=== PATIENT | male | born 1975 | race Caucasian/White ===

== ENCOUNTER 2020-07-09 23:34 | Emergency (ER) | payer MEDICARE, MEDICAID, SELFPAY ==
[2020-07-09 23:46] VITALS: BP 150/83; PULSE 76; RESP 17; TEMP 36.7; O2SAT 97; BMI 33.3
--- NOTE | 2020-07-09 23:56 | XR_ITS ---
WS: [id number] Left foot, 3 views, 07/10/2020 Clinical Data: foot pain and injury Comparison: None. Findings: No fractures or dislocations are seen. No bone destruction or erosion is noted. The joint spaces and soft tissues are normal. XR/XR foot LT min 3V* [id number] Impression: Negative left foot.
--- NOTE | 2020-07-09 23:56 | XR_ITS ---
WS: [id number] Left ankle, 3 views, 07/10/2020 Clinical Data: injury with pain Comparison: None. Findings: No fractures or dislocations are seen. The ankle mortise is normal. The talus and calcaneus are unrem arkable. No soft tissue swelling over the medial or lateral malleolus is seen. XR/XR ankle LT min 3V* [id number] Impression: Negative left ankle.
--- NOTE | 2020-07-09 23:59 | ED_ITS ---
HPI - Extremity Problem General: Chief complaint: Extremity Injury, Lower Stated complaint: fall/swelling in left foot Time Seen by Provider: 07/09/20 23:35 History of Present Illness: HPI Narrative: Patient is a 45-year-old male comes to the ED with injury to left foot. Patient says 2 days ago he slipped and sprained his left foot. He has had some swelling in left foot and pain as well. He says his pain has gotten better but the swelling is still there. He is also complaining of his foot being very red. Patient is unsure of his last tetanus shot. Associated symptoms: Deny chest pain, fever(s) or rash Review of Systems Const: Denies: fever(s), chills or fatigue Eyes: Denies: change in vision or eye discomfort ENMT: Denies: throat pain, odynophagia, nasal discharge or nasal congestion Card: Denies: chest pain, palpitations, edema, swelling of feet/ankles, dyspnea on exertion or orthopnea Resp: Denies: dyspnea, productive cough or non-productive cough GI: Denies: abdominal pain, nausea, vomiting, diarrhea, constipation or hematochezia : Denies: flank pain, difficulty urinating, dysuria or hematuria Musc: Reports: extremity pain (left foot); Denies: neck pain, back pain or extremity swelling Skin/Breast: Reports: erythema (skin is red on foot); Denies: rash or new lesions Neuro: Denies: headache(s), numbness in extremities or weakness in extremities Physical Exam Const: COMMON NORMALS: no acute distress, patient oriented x3, healthy appearing and alert GENERAL APPEARANCE: cooperative and comfortable HENMT: COMMON NORMALS: normocephalic HEAD & SCALP: normocephalic MOUTH: Normal oral and palatal mucosa present THROAT: posterior oropharynx normal and uvula midline Eye: COMMON NORMALS: Equal, round and reactive pupils present PUPIL: Yes Equal, round and reactive pupils present Neck/C-Spine: COMMON NORMALS: supple GENERAL: Yes normal visual inspection Resp: COMMON NORMALS: normal respiratory effort, No retractions, No use of accessory muscles and clear to auscultation bilaterally AUSCULTATION: clear to auscultation bilaterally Cardio: COMMON NORMALS: regular rate, regular rhythm, S1 normal heart sound present, S2 normal heart sound present, No gallops present (Cardio), No clicks present (Cardio), No murmurs present (Cardio) and Peripheral pulses 2+ throughout RATE: regular rate RHYTHM: regular rhythm HEART SOUNDS: S1 normal heart sound present and S2 normal heart sound present PERIPHERAL PULSES: Peripheral pulses 2+ throughout GI: COMMON NORMALS: Normal to inspection, nondistended, normoactive bowel sounds present, Soft to palpation, non-tender and no masses PALPATION: Yes Soft to palpation : COMMON NORMALS: Yes no CVA tenderness BLADDER/KIDNEY EXAM: Yes no CVA tenderness Back/Pelvis: COMMON NORMALS: no CVA tenderness Extremity: LEFT LOWER EXTREMITY: Yes foot & digits Left foot and digits: Yes inspection (No visible deformity, edema and erythema and warmth on left foot), Yes palpation (Tender to palpation over top of left foot.), Yes ROM (Full range of motion) and Yes neurovascular exam (Intact) Neuro: COMMON NORMALS: patient oriented x3 and moves all extremities SENSORIUM/ORIENTATION: Yes alert Skin: NARRATIVE SKIN EXAM: On left foot patient has multiple small superficial abrasions, along with erythema warmth and tenderness of the skin. No purulent drainage seen. Findings suggestive of cellulitis developing in left foot. GENERAL SKIN EXAM: dry skin Course Vital Signs: Vital signs: Vital Signs Temperature 98.1 F 07/09/20 23:46 Pulse Rate 76 07/09/20 23:46 Respiratory Rate 17 07/09/20 23:46 Blood Pressure 150/83 07/09/20 23:46 Pulse Oximetry 97 07/09/20 23:46 MDM - Extremity (Nontraumatic) MDM Narrative: Medical decision making narrative: Patient is a 45-year-old male comes to the ED with left foot pain and swelling. Patient said a couple days ago he fell and twisted left foot. He says his pain has gotten a lot better in his left foot but he has had continued swelling and redness left foot. Exam findings show left foot edema, warmth, erythema and tenderness to palpation over the left foot. Multiple tiny superficial abrasions on left foot with the surrounding erythema. findings are suggestive of cellulitis. Neurovascular intact. X-ray of left foot and left ankle showed no acute fractures or findings. Patient was diagnosed with cellulitis left foot and given dose of Bactrim while here in the ED. Patient patient discharged home with a prescription for Bactrim and he was given tetanus shot while here in the ED. He was told to follow-up with his primary care doctor in 7 to 10 days for reevaluation. Take [id number] ibuprofen or Tylenol for pain and inflammation, rest ice and elevate left foot. Return to ED precautions given. Patient understood and agreed with plan. Imaging Data^: Xray Ortho: Attestation: I personally reviewed and interpreted this imaging study as follows: My impression: Left foot and left ankle x-ray showed no acute fractures or findings. Discharge Plan Discharge Patient Disposition: Home Clinical Impression: Cellulitis Qualifiers: Site of cellulitis: extremity Site of cellulitis of extremity: lower extremity Laterality: left Qualified Code(s): L03.116 - Cellulitis of left lower limb Condition: Stable Prescriptions: New Bactrim DS 800-160 mg tablet 1 tab PO BID 7 Days Qty: 14 RF: 0 Discharge Orders: Discharge ED (Routine); Ordered 07/10/20 Ordered By: Charles Trevino Referrals: Ruth Puckett DO [Primary Care Provider] - Discharge Diet: Regular Discharge Activity: Increase activity as tolerated Patient Instructions: Cellulitis (ED) Activity Restrictions/Additional Instructions: Follow-up with medical provider as directed in 7 to 10 days for reevaluation. Take full course of antibiotic as prescribed. Take [id number] Tylenol or Motrin for pain. Rest ice and elevate left leg as well. Return to the ED or your medical provider if condition worsens. Please read and understand discharge instructions. If any questions, please ask. Coding Level of Care Code ED Dress Operator for Guilherme Barnes Exam Comprehensive
[2020-07-10] MEDS: sulfamethoxazole-trimeth DS 160-800 mg Tablet 1 TAB PO (00:15)
[2020-07-10] MEDS: ketorolac 60 mg/2 mL INJ IM (00:16)
[2020-07-10] MEDS: tetanus-dipt-pertussis 0.5 mL SDV IM (00:21)
== END 2020-07-10 00:44 | disposition home or self-care (01) ==
PROVIDERS: Emergency Provider Physician Assistant; PCP Family Medicine
DX: L03.116 Cellulitis of left lower limb (principal); Z23 Encounter for immunization; S90.812A Abrasion, left foot, initial encounter; W01.0XXA Fall on same level from slipping, tripping and stumbling without subsequent striking against object, initial encounter
CPT/HCPCS: 73610; 73630; 90471; 90715; 96372; 99283; J1885

== ENCOUNTER 2020-08-16 21:37 | Emergency (ER) | payer MEDICARE, MEDICAID, SELFPAY ==
[2020-08-16 21:41] VITALS: BP 133/82; PULSE 76; RESP 17; TEMP 36.9; O2SAT 98; BMI 33.2
--- NOTE | 2020-08-16 22:41 | ED_ITS ---
HPI - Extremity Problem General: Chief complaint: Extremity Injury, Lower Stated complaint: BUMPED R FOOT/SWELLING Time Seen by Provider: 08/16/20 22:17 Source: patient Mode of arrival: ambulatory Limitations: no limitations History of Present Illness: HPI Narrative: Patient is a 45-year-old male who presents to ED today with complaints of swelling and redness to his right foot. Patient tells me yesterday he stubbed his foot and sustained abrasions to the top of his third and fourth digits. He states since that time he has noticed redness and swelling to his foot. Patient was seen at our facility last month for almost identical symptoms to the left foot. He was treated successfully with oral Bactrim. Patient has not noticed any redness streaking up his leg. He is not complaining of bony tenderness or pain with ambulation. He has not been running fevers. He is not a diabetic. MD Complaint: extremity pain and extremity swelling Onset (ago): hour(s) Location: right and lower extremity Radiation: none Relieving factors: nothing Exacerbating factors: nothing Associated symptoms: Reports no associated symptoms; Deny chest pain or fever(s) Review of Systems Const: Denies: fever(s), chills, body aches, fatigue or malaise Card: Denies: chest pain Resp: Denies: dyspnea Musc: Reports: extremity swelling (R foot); Denies: joint pain, joint swelling or limited range of motion Skin/Breast: Reports: other (redness R foot) Neuro: Denies: numbness in extremities, sensory changes or difficulty walking Physical Exam Const: COMMON NORMALS: no acute distress, patient oriented x3, no limitations and alert GENERAL APPEARANCE: cooperative ORIENTATION/CONSCIOUSNESS: Yes awake, Yes oriented to person, Yes oriented to place and Yes oriented to time Extremity: OTHER: pt has small abrasions to the dorsum of his 3-4 digits; he has mild warmth/erythema to 2-4 toes and to the distal dorsal foot; there is non-pitting edema present; no findings to lower leg/ankle; no lymphangitic streaking; no abscess formation Neuro: COMMON NORMALS: patient oriented x3, moves all extremities, no focal motor deficits, no sensory deficits noted and gait normal SENSORIUM/ORIENTATION: Yes alert, Yes oriented to person, Yes oriented to place and Yes oriented to time Skin: NARRATIVE SKIN EXAM: see extremity assessment-otherwise normal skin exam Course Vital Signs: Vital signs: Vital Signs Temperature 98.5 F 08/16/20 21:41 Pulse Rate 76 08/16/20 23:10 Respiratory Rate 17 08/16/20 23:10 Blood Pressure 133/82 08/16/20 23:10 Pulse Oximetry 98 08/16/20 23:10 MDM - Extremity (Nontraumatic) MDM Narrative: Medical decision making narrative: Return to ED precautions given. Will treat with oral Bactrim again as patient had good clincal results with this last time. Discharge Plan Discharge Patient Disposition: Home Clinical Impression: Cellulitis of foot, right Condition: Stable Prescriptions: New Bactrim DS 800-160 mg tablet 1 tab PO BID 7 Days Qty: 14 RF: 0 Discharge Orders: Discharge ED (Routine); Ordered 08/16/20 Ordered By: Indira Chatterjee Referrals: Ruth Puckett DO [Primary Care Provider] - Patient Instructions: Cellulitis (ED) Activity Restrictions/Additional Instructions: Fill your antibiotics and get started on them immediately. You need to return to the emergency department for worsening redness, streaking up your leg, fevers, inability to hold down your antibiotics, or any other concerns you may have. Coding Level of Care Code ED Assorter Laundry for Guilherme Barnes
[2020-08-16] MEDS: sulfamethoxazole-trimeth DS 160-800 mg Tablet 1 TAB PO (22:55)
[2020-08-16 23:10] VITALS: BP 133/82; PULSE 76; RESP 17; O2SAT 98
== END 2020-08-16 22:50 | disposition home or self-care (01) ==
PROVIDERS: Emergency Provider Physician Assistant; PCP Family Medicine
DX: L03.115 Cellulitis of right lower limb (principal)
CPT/HCPCS: 99282

== ENCOUNTER 2020-09-23 12:56 | Outpatient (CLI) | payer MEDICARE, MEDICAID, SELFPAY ==
--- NOTE | 2020-09-23 13:01 | XRR_ITS ---
PROCEDURE INFORMATION: Exam: XR Chest Exam date and time: 09/23/2020 1:01 PM Age: 45 years old Clinical indication: Pain; Angina pectoris; Additional info: Chest pain TECHNIQUE: Imaging protocol: XR of the chest. Views: 2 views. COMPARISON: No relevant prior studies available. FINDINGS: Lungs: Nodule in the left upper lobe measuring 7 mm. Pleural spaces: Unremarkable. No pleural effusion. No pneumothorax. Heart/Mediastinum: Unremarkable. No cardiomegaly. Bones/joints: Unremarkable. XR/XR chest 2V* [id number] IMPRESSION: Nodule in the left upper lobe measuring [address] chest is suggested for further evaluation. Comparison with prior imaging if available can be helpful.
--- NOTE | 2020-09-23 13:01 | XRR_ITS ---
PROCEDURE INFORMATION: Exam: XR Abdomen Exam date and time: 09/23/2020 1:01 PM Age: 45 years old Clinical indication: Abdominal pain; Generalized; Additional info: Chronic generalized abdominal pain TECHNIQUE: Imaging protocol: XR of the abdomen. Views: Frontal supine view of the abdomen. 1 View. COMPARISON: No relevant prior studies available. FINDINGS: Gastrointestinal tract: Moderate colonic fecal load. Normal bowel gas pattern. Bones/joints: Unremarkable. XR/XR abdomen 1V* [id number] IMPRESSION: Moderate colonic fecal load. Correlation with constipation.
== END 2020-09-23 12:57 | disposition home or self-care (01) ==
PROVIDERS: PCP Family Medicine; Visit Provider Family Medicine
DX: R10.84 Generalized abdominal pain (principal); R07.89 Other chest pain; R91.1 Solitary pulmonary nodule
CPT/HCPCS: 71046; 74018

== ENCOUNTER 2020-12-20 07:29 | Emergency (ER) | payer MEDICARE, MEDICAID, SELFPAY ==
[2020-12-20 07:30] VITALS: BP 135/85; PULSE 69; RESP 16; TEMP 36.6; O2SAT 99; BMI 33.3
--- NOTE | 2020-12-20 07:33 | XRR_ITS ---
PROCEDURE INFORMATION: Exam: XR Right Shoulder Exam date and time: 12/20/2020 7:33 AM Age: 45 years old Clinical indication: Injury or trauma; Fall; Blunt trauma (contusions or hematomas); Shoulder; Right; Injury date: 12/20/2020; Additional info: Injury/fall; Y view too please TECHNIQUE: Imaging protocol: XR Right shoulder. Views: 2 or more views. Total images: 3 COMPARISON: CR XR chest 2V* [id number] 09/23/2020 1:10 PM FINDINGS: Bones/joints: Normal. Soft tissues: Normal. XR/XR shoulder RT min 2V* [id number] IMPRESSION: No acute findings.
--- NOTE | 2020-12-20 07:34 | W.ED.FALL ---
HPI - Fall General: Chief Complaint: Fall Stated Complaint: FALL, R SHOULDER PAIN Time Seen by Provider: 12/20/20 07:30 Source: patient and EMS Mode of arrival: EMS Limitations: no limitations History of Present Illness: HPI Narrative: Patient is a 45-year-old male who presents to ED today via EMS for evaluation of right shoulder pain following a fall. Patient tells me this morning he was getting out of the shower when he slipped and fell directly onto his right shoulder. He denies any other injury sustained during the fall. Patient denies striking his head or LOC. He is not complaining of neck or back pain. He has been ambulatory since the event without difficulty. Patient is not complaining of numbness or tingling to his right upper extremity. MD complaint: fall Onset (ago): hour(s) Fall from: standing Fall witnessed: no Place fall occurred: home Loss of consciousness: None Prolonged down time: no Symptoms prior to fall: none Context: tripped/slipped Location of injury - extremities: Right: shoulder Severity: moderate Associated symptoms-after fall: Denies abdominal pain, chest pain, difficulty walking, headache(s), lightheadedness or neck pain Review of Systems Const: Denies: fever(s), chills, body aches, fatigue or malaise Eyes: Denies: change in vision or blurry vision ENMT: Denies: throat pain, odynophagia, nasal discharge or nasal congestion Card: Denies: chest pain, palpitations, irregular heart rhythm, edema, lightheadedness, syncope, pre-syncope or dyspnea on exertion Resp: Denies: dyspnea, productive cough, non-productive cough, hemoptysis or chest congestion GI: Denies: abdominal pain, nausea, vomiting or diarrhea : Denies: flank pain or dysuria Musc: Reports: joint pain (R shoulder); Denies: neck pain, back pain, extremity pain, extremity swelling, joint swelling or joint redness Skin/Breast: Denies: rash Neuro: Denies: headache(s), numbness in extremities, weakness in extremities, sensory changes, difficulty walking or dizziness Physical Exam Const: COMMON NORMALS: no acute distress, patient oriented x3, no limitations, alert and well nourished GENERAL APPEARANCE: cooperative NUTRITIONAL APPEARANCE: overweight ORIENTATION/CONSCIOUSNESS: Yes awake, Yes oriented to person, Yes oriented to place and Yes oriented to time HENMT: COMMON NORMALS: normocephalic and atraumatic HEAD & SCALP: normal to inspection, normocephalic and atraumatic FACE & SINUS: normal facial exam Neck/C-Spine: COMMON NORMALS: full ROM CERVICAL SPINE: Yes cervical ROM normal, No pain with cervical ROM, No Cervical spine tenderness and No Paracervical muscle tenderness Chest: COMMONS NORMALS: normal inspection of the chest and normal palpation of entire chest wall Resp: COMMON NORMALS: normal respiratory effort and clear to auscultation bilaterally AUSCULTATION: clear to auscultation bilaterally Cardio: COMMON NORMALS: regular rate and regular rhythm RATE: regular rate RHYTHM: regular rhythm GI: COMMON NORMALS: Normal to inspection, nondistended, normoactive bowel sounds present, Soft to palpation, non-tender, No hepatosplenomegaly present and no masses PALPATION: Yes Soft to palpation and Yes No hepatosplenomegaly present Back/Pelvis: COMMON NORMALS: thoracic and lumbar spine normal to inspection, no thoracic nor lumbar tenderness and thoraco-lumbar ROM normal Extremity: GENERAL: Yes normal exam except as noted RIGHT UPPER EXTREMITY: Yes shoulder joint Right shoulder: Yes Right shoulder joint inspection exam (TTP glenohumeral joint), Yes Right shoulder joint ROM exam (limited past about 30-40 deg flexion and abduction) and Yes Right shoulder joint neurovascular exam (normal) Neuro: JOSE COMA SCALE: document GCS findings Waldron coma scale eye opening: Spontaneous Jose coma scale verbal response: Orientated Jose coma scale motor response: Obey commands Jose coma scale total score: 15 COMMON NORMALS: patient oriented x3, CN's II-XII intact bilaterally, moves all extremities, no focal motor deficits, no sensory deficits noted and gait normal SENSORIUM/ORIENTATION: Yes alert, Yes oriented to person, Yes oriented to place and Yes oriented to time Skin: COMMON NORMALS: no rashes or lesions noted GENERAL SKIN EXAM: no rashes or lesions noted TRAUMA: no lacerations or abrasions Course Vital Signs: Vital signs: Vital Signs Temperature 97.9 F 12/20/20 07:30 Pulse Rate 79 12/20/20 08:40 Respiratory Rate 16 12/20/20 08:40 Blood Pressure 152/74 12/20/20 08:40 Pulse Oximetry 97 12/20/20 08:40 MDM - Fall Imaging Data^: XR R shoulder: Radiologist's impression: [facility] [address] [place] [address] XRay Report Signed Patient: Billy Eubanks Unit #: [id number] : 1975 Age/Sex: 45 / M ADM Date: 12/20/20 Loc: ER Room/Bed: Attending Dr: Ordering Provider/Ordering MD: Indira Chatterjee Date of Service: 12/20/20 Procedure(s): XR shoulder RT min 2V* [id number] Accession Number(s): [id number] Report Number: [id number] PROCEDURE INFORMATION: Exam: XR Right Shoulder Exam date and time: 12/20/2020 7:33 AM Age: 45 years old Clinical indication: Injury or trauma; Fall; Blunt trauma (contusions or hematomas); Shoulder; Right; Injury date: 12/20/2020; Additional info: Injury/fall; Y view too please TECHNIQUE: Imaging protocol: XR Right shoulder. Views: 2 or more views. Total images: 3 COMPARISON: CR XR chest 2V* [id number] 09/23/2020 1:10 PM FINDINGS: Bones/joints: Normal. Soft tissues: Normal. XR/XR shoulder RT min 2V* [id number] IMPRESSION: No acute findings. Dictated By: Luis Chapa MD Signed By: Luis Chapa MD Signed Date/Time: 12/20/20841 DD/ 9 Discharge Plan Discharge Patient Disposition: Home Clinical Impression: Right shoulder injury Qualifiers: Encounter type: initial encounter Qualified Code(s): S49.91XA - Unspecified injury of right shoulder and upper arm, initial encounter Condition: Stable Discharge Orders: Discharge ED (Routine); Ordered 12/20/20 Ordered By: Indira Chatterjee Referrals: Ruth Puckett DO [Primary Care Provider] - Activity Restrictions/Additional Instructions: As we discussed please follow-up with primary care next week for continued shoulder pain. You may wear the sling for the next 24 to 48 hours but as we discussed please begin gentle passive range of motion of the shoulder joint. You may take Tylenol and/or ibuprofen as needed for discomfort. You may apply ice to the shoulder for 15 to 20 minutes every other hour. Coding Level of Care Code ED Apprentice Electrician for Chg F[employer] Exam Comprehensive
[2020-12-20 07:46] VITALS: BP 135/85; PULSE 71; O2SAT 98
[2020-12-20] MEDS: ketorolac 60 mg/2 mL INJ IM (08:16)
[2020-12-20 08:40] VITALS: BP 152/74; PULSE 79; RESP 16; O2SAT 97
== END 2020-12-20 08:42 | disposition home or self-care (01) ==
PROVIDERS: Emergency Provider Physician Assistant; PCP Family Medicine
DX: S49.91XA Unspecified injury of right shoulder and upper arm, initial encounter (principal); W18.2XXA Fall in (into) shower or empty bathtub, initial encounter
CPT/HCPCS: 73030; 96372; 99283; J1885

== ENCOUNTER 2021-06-30 22:03 | Emergency (ER) | payer BC, MEDICAID, SELFPAY ==
[2021-06-30 22:49] VITALS: BP 134/77; PULSE 91; RESP 20; TEMP 36.7; O2SAT 97; BMI 33.7
--- NOTE | 2021-07-01 00:12 | ED_ITS ---
HPI - Skin/Abscess/Foreign Bdy General: Chief complaint: Skin/Abscess/Foreign Body Stated complaint: right foot swelling Time Seen by Provider: 07/01/21 00:12 History of Present Illness: 46-year-old male patient comes in today with redness and pain to the right foot at the first MTP joint. Patient has had 2 prior episodes which was treated as cellulitis. Patient is concerned that he has cellulitis again. Patient denies diabetes. Patient takes no routine medications. Patient appears in mild pain. Patient reports no chronic medical problems. Associated symptoms: Deny fever(s) Review of Systems General: Reports: 10 or more systems reviewed and unremarkable except in HPI and below Const: Denies: fever(s) Card: Denies: chest pain Resp: Denies: dyspnea Musc: Reports: extremity pain Skin/Breast: Reports: erythema Physical Exam Const: COMMON NORMALS: alert HENMT: COMMON NORMALS: normocephalic HEAD & SCALP: normocephalic Resp: COMMON NORMALS: normal respiratory effort and clear to auscultation bilaterally AUSCULTATION: clear to auscultation bilaterally Cardio: COMMON NORMALS: regular rate and regular rhythm RATE: regular rate RHYTHM: regular rhythm Extremity: RIGHT LOWER EXTREMITY: Yes foot & digits (Erythema and tenderness to the first MTP joint) Right foot and digits: Yes inspection, Yes palpation, Yes ROM and Yes neurovascular exam Neuro: SENSORIUM/ORIENTATION: Yes alert Skin: COMMON NORMALS: no rashes or lesions noted GENERAL SKIN EXAM: no ra shes or lesions noted Course Vital Signs: Vital signs: Vital Signs Temperature 98.1 F 06/30/21 22:49 Pulse Rate 91 06/30/21 22:49 Respiratory Rate 20 H 06/30/21 22:49 Blood Pressure 134/77 06/30/21 22:49 Pulse Oximetry 97 06/30/21 22:49 MDM - Skin/Abscess/Foreign Bdy Medicial Decision Making Patient presents with some redness and swelling to the right foot. On exam patient has good pulses. Patient has redness and tenderness to the MTP joint of the first digit of the right foot. Distal pulses and sensation is intact. Differential diagnosis includes cellulitis, gout, fracture. X-ray noted no fracture. BMP and uric acid was drawn for further evaluation. I believe patient probably has gout and I went ahead and gave 80 mg of Depo-Medrol IM, 30 mg of Toradol for pain, patient will be continued on diclofenac and colchicine for his treatment. Will cover with cephalexin for of simple cellulitis but I do not believe this is the main cause. Recommend patient follow-up with primary care in 3 days for recheck. And for preventative treatment for gout flares. Lab Data : 07/01/21 00:40 Discharge Plan Discharge Patient Disposition: Home Clinical Impression: Gout Qualifiers: Gout site: toe Gout etiology: unspecified cause Chronicity: unspecified Laterality: right Qualified Code(s): M10.9 - Gout, unspecified Condition: Stable Prescriptions: New colchicine 0.6 mg tablet 0.6 mg PO DAILY Qty: 7 0RF diclofenac sodium 75 mg tablet,delayed release (DR/EC) 75 mg PO Q12H PRN (Reason: pain) Qty: 20 0RF cephalexin 500 mg capsule 500 mg PO Q12H 7 Days Qty: 14 0RF Discharge Orders: Discharge ED (Routine); Ordered 07/01/21 Ordered By: Esau Collier Referrals: Ruth Puckett DO [Primary Care Provider] - Discharge Diet: As Directed Discharge Activity: Increase activity as tolerated Patient Instructions: Low Purine Diet (ED), Gout (ED), Opioid Safety Activity Restrictions/Additional Instructions: Home and rest. Drink plenty of fluids. Take medication as directed. Follow-up with primary care in 3 days for recheck and further treatment for gout. Return to ER for new concerns. Coding Level of Care Code ED Development Vice President for Guilherme Barnes
--- NOTE | 2021-07-01 00:18 | XRR_ITS ---
PROCEDURE INFORMATION: Exam: XR Right Foot Exam date and time: 07/01/2021 12:24 AM Age: 46 years old Clinical indication: Other: Redness, swelling TECHNIQUE: Imaging protocol: XR Right foot. Views: 3 or more views. COMPARISON: No relevant prior studies available. FINDINGS: Bones/joints: Normal. Soft tissues: Soft tissue swelling of the great toe and medial forefoot. XR/XR foot RT min 3V* [id number] IMPRESSION: No osseous abnormality.
[2021-07-01] MEDS: cephALEXin 500 mg Capsule PO (00:30)
[2021-07-01] MEDS: ketorolac 30 mg/mL INJ IM (00:30)
[2021-07-01] MEDS: methylPREDNISolone (DEPO) 80 MG/ML INJ 1 mL IM (00:30)
[2021-07-01 01:38] LABS: Anion Gap 18.6 (5-19); Blood Urea Nitrogen 14 mg/dL (6-20); Calcium 9.7 mg/dL (8.5-10.5); Carbon Dioxide 22 mmol/L (22-29); Chloride 102 mmol/L (98-107); Glomerular Filtration Rate 81.2 mL/min (90-130); Glucose 130 mg/dL (65-115); Osmolality Calculated 290 mOsm/kg (285-295); Potassium 3.6 mmol/L (3.5-5.1); Sodium 139 mmol/L (136-145); Uric Acid 7.6 mg/dL (3.4-7.0)
== END 2021-07-01 01:34 | disposition home or self-care (01) ==
PROVIDERS: Emergency Provider Nurse Practitioner Family; PCP Family Medicine
DX: M10.9 Gout, unspecified (principal); M79.671 Pain in right foot
CPT/HCPCS: 73630; 80048; 84550; 96372; 99283; J1040; J1885

== ENCOUNTER 2021-08-06 13:51 | Outpatient (CLI) | payer BC, MEDICAID, SELFPAY ==
--- NOTE | 2021-08-06 14:07 | XR_ITS ---
WS: [id number] XR foot RT min 3V* [id number] REASON FOR EXAM: ACUTE GOUT INVOLVING TOE OF R FOOT FINDINGS: Soft tissue swelling in the region of the metatarsal-phalangeal joint of the great toe. No discrete m ass or calcification. The MTP joint space of the great toe is intact and well preserved. No erosions. No periosteal reactio n. No other significant bony or joint abnormality of the right foot is identified. XR/XR foot RT min 3V* [id number] IMPRESSION: Soft tissue swelling of the great toe with no other finding.
== END 2021-08-06 13:52 | disposition home or self-care (01) ==
PROVIDERS: PCP Family Medicine; Visit Provider Nurse Practitioner Family
DX: M10.9 Gout, unspecified (principal); M79.89 Other specified soft tissue disorders
CPT/HCPCS: 73630

== ENCOUNTER 2021-08-08 20:23 | Emergency (ER) | payer MEDICARE, MEDICAID, SELFPAY ==
[2021-08-08 20:30] VITALS: BP 159/81; PULSE 75; RESP 18; O2SAT 99; BMI 33.0
--- NOTE | 2021-08-08 20:35 | W.ED.EXTPRO ---
HPI - Extremity Problem General: Chief complaint: Extremity Injury, Lower Stated complaint: Gout Flare up on Rt foot Time Seen by Provider: 08/08/21 20:34 History of Present Illness: 46-year-old male patient comes in today with complaints of right foot gout attack. Patient was started on antibiotics and steroid for concern of cellulitis. Patient was told he had gout but they were concern for secondary cellulitis. No sign of cellulitis is noted. Patient is afebrile. Patient comes in due to continued complaints of pain and discomfort. Patient does report some decrease in redness though. Associated symptoms: Deny chest pain Review of Systems General: Reports: 10 or more systems reviewed and unremarkable except in HPI and below Card: Denies: chest pain Resp: Denies: dyspnea Musc: Reports: extremity pain and joint redness Physical Exam Const: COMMON NORMALS: alert HENMT: COMMON NORMALS: normocephalic HEAD & SCALP: normocephalic Neck/C-Spine: COMMON NORMALS: full ROM Resp: COMMON NORMALS: normal respiratory effort Cardio: COMMON NORMALS: regular rate RATE: regular rate Extremity: RIGHT LOWER EXTREMITY: Yes foot & digits (First MTP joint redness and tenderness.) Neuro: SENSORIUM/ORIENTATION: Yes alert Skin: COMMON NORMALS: no wounds Course Vital Signs: Vital signs: Vital Signs Pulse Rate 75 08/08/21 20:30 Respiratory Rate 18 08/08/21 20:30 Blood Pressure 159/81 08/08/21 20:30 Pulse Oximetry 99 08/08/21 20:30 MDM - Extremity (Nontraumatic) Medical Decision Making 46-year-old male patient comes in today with a gout attack. On exam patient has some redness and tenderness to the first MTP joint of the right foot. Differential diagnosis includes gout, cellulitis, fracture. No significant signs of cellulitis is noted. Patient has had multiple episodes of this gout flare. Patient has recently been diagnosed back in June with gout and has been started on allopurinol for prophylaxis. Recommended patient hold allopurinol while the gout flare is going and then follow-up with primary care for adjustment of allopurinol. Patient reported understanding and agreed to plan. Discharge Plan Discharge Patient Disposition: Home Clinical Impression: Gout attack Qualifiers: Gout site: foot Gout etiology: unspecified cause Laterality: right Qualified Code(s): M10.9 - Gout, unspecified Condition: Stable Prescriptions: Continued diclofenac sodium 75 mg tablet,delayed release (DR/EC) 75 mg PO Q12H PRN (Reason: pain) Qty: 20 0RF colchicine 0.6 mg tablet 0.6 mg PO DAILY Qty: 6 0RF Rx Instructions: Take 2 tablets when prescription is filled, repeat 1 tablet in 1 hour. Repeat dosing in 3 days if needed. Discharge Orders: Discharge ED (Routine); Ordered 08/08/21 Ordered By: Esau Collier Referrals: Ruth Puckett DO [Primary Care Provider] - Discharge Diet: Usual diet Discharge Activity: Increase activity as tolerated Patient Instructions: Gout (ED) Activity Restrictions/Additional Instructions: Activity as tolerated. Drink plenty of water with medications. Use colchicine 0.6 mg as directed. You will take 2 tablets when you have the prescription filled, then repeat 1 tablet in 1 hour. You can repeat the colchicine in 3 days if symptoms persist. Use diclofenac 75 mg 1 tablet every 12 hours as needed for pain and inflammation. Drink plenty of water with medication. Use acetaminophen, Tylenol, otherwise for pain. Follow-up with primary care in 1 week for recheck. Return to ER. Remember, to hold allopurinol while you have a flare of gout. Restart the allopurinol as the flare subsides. Coding Level of Care Code ED Lieutenant Fire Fighter for Guilherme Barnes
[2021-08-08] MEDS: dexamethasone 10 mg/mL INJ IM (20:55)
[2021-08-08] MEDS: ketorolac 30 mg/mL INJ IM (20:56)
[2021-08-08 21:15] VITALS: BP 133/77; PULSE 78; RESP 20; O2SAT 98
== END 2021-08-08 21:17 | disposition home or self-care (01) ==
PROVIDERS: Emergency Provider Nurse Practitioner Family; PCP Family Medicine
DX: M10.9 Gout, unspecified (principal)
CPT/HCPCS: 96372; 99283; J1100; J1885

== ENCOUNTER 2021-10-08 16:11 | Emergency (ER) | payer MEDICARE, MEDICAID, SELFPAY ==
[2021-10-08 16:58] VITALS: BP 123/75; PULSE 83; RESP 16; TEMP 36.8; O2SAT 98
--- NOTE | 2021-10-08 18:05 | XRR_ITS ---
PROCEDURE INFORMATION: Exam: XR Right Ribs with PA Chest Exam date and time: 10/08/2021 6:36 PM Age: 46 years old Clinical indication: Pain; Other: RT. Mid ribs; Additional info: Injury TECHNIQUE: Imaging protocol: Radiologic exam of the Right ribs with PA chest. Views: 3 views COMPARISON: CR XR chest 2V* [id number] 09/23/2020 1:10 PM FINDINGS: Lungs: Unremarkable. No consolidation. Pleural spaces: Unremarkable. No pleural effusion. No pneumothorax. Heart/Mediastinum: Unremarkable. No cardiomegaly. Bones/joints: No evidence of rib fracture. No acute findings. XR/XR ribs RT mn 3V w CXR1V [id number] IMPRESSION: No acute findings.
--- NOTE | 2021-10-08 21:14 | ED_ITS ---
HPI - General Adult General: Chief complaint: General Medical Stated complaint: R side rib pain Time Seen by Provider: 10/08/21 21:08 History of Present Illness: 46-year-old male patient comes in today with right rib pain. Patient reports that he was sitting down in a valente this morning at breakfast when he struck the right side of his ribs. Since then patient has had increasing pain and discomfort. Patient appears well. Patient appears in moderate pain. Associated symptoms: Deny chest pain or dyspnea Review of Systems General: Reports: 10 or more systems reviewed and unremarkable except in HPI and below Card: Denies: chest pain Resp: Denies: dyspnea Musc: Reports: other (Right rib pain) Physical Exam Const: COMMON NORMALS: alert HENMT: COMMON NORMALS: normocephalic HEAD & SCALP: normocephalic Neck/C-Spine: COMMON NORMALS: full ROM Chest: CHEST: Yes tenderness (Right anterior rib, no flailing, no crepitus) Resp: COMMON NORMALS: normal respiratory effort Cardio: COMMON NORMALS: regular rate RATE: regular rate Back/Pelvis: COMMON NORMALS: thoracic and lumbar spine normal to inspection Neuro: SENSORIUM/ORIENTATION: Yes alert Skin: COMMON NORMALS: no rashes or lesions noted GENERAL SKIN EXAM: no rashes or lesions noted Course Vital Signs: Vital signs: Vital Signs Temperature 98.2 F 10/08/21 16:58 Pulse Rate 83 10/08/21 16:58 Respiratory Rate 16 10/08/21 16:58 Blood Pressure 123/75 10/08/21 16:58 Pulse Oximetry 98 10/08/21 16:58 [facility] - General Adult Medical Decision Making 46-year-old male patient comes in today with injury to the right rib. On exam patient has clear lung sounds, tenderness to the right anterior ribs, no crepitus or subcu emphysema. Differential diagnosis includes fracture, contusion, pneumothorax. Chest x-ray noted no fracture or pneumothorax. Reviewed exam with patient with recommendations for treatment and follow-up. Patient reported understanding. Lab Data Radiology Impressions Ribs X-Ray 10/08/21 18:05 IMPRESSION: No acute findings. Discharge Plan Discharge Patient Disposition: Home Clinical Impression: Contusion of rib on right side Qualifiers: Encounter type: initial encounter Qualified Code(s): S20.211A - Contusion of right front wall of thorax, initial encounter Condition: Stable Prescriptions: No Action diclofenac sodium 75 mg tablet,delayed release (DR/EC) 75 mg PO Q12H PRN (Reason: pain) Qty: 20 0RF colchicine 0.6 mg tablet 0.6 mg PO DAILY Qty: 6 0RF Rx Instructions: Take 2 tablets when prescription is filled, repeat 1 tablet in 1 hour. Repeat dosing in 3 days if needed. Discharge Orders: Discharge ED (Routine); Ordered 10/08/21 Ordered By: Esau Collier Referrals: Ruth Puckett DO [Primary Care Provider] - Discharge Diet: Usual diet Discharge Activity: Increase activity as tolerated Patient Instructions: Contusion in Adults (ED) Activity Restrictions/Additional Instructions: Activity as tolerated. Use acetaminophen and ibuprofen for pain. Use ice or heat for further pain relief. Follow-up with primary care as needed. Return to ER for increased shortness of breath, fever greater than 100.4, or new concerns. Coding Level of Care Code ED Computer Aided Drafter for Guilherme Barnes
[2021-10-08] MEDS: ibuprofen 800 mg tablet PO (21:24)
[2021-10-08 21:25] VITALS: BP 130/74; PULSE 84; RESP 16; O2SAT 99
== END 2021-10-08 21:26 | disposition home or self-care (01) ==
PROVIDERS: Emergency Provider Nurse Practitioner Family; PCP Family Medicine
DX: S20.211A Contusion of right front wall of thorax, initial encounter (principal); W22.09XA Striking against other stationary object, initial encounter
CPT/HCPCS: 71101; 99283

== ENCOUNTER 2022-08-28 19:30 | Emergency (ER) | payer MEDICARE, MEDICAID, SELFPAY ==
[2022-08-28 19:55] VITALS: PULSE 91; RESP 16; TEMP 36.7; O2SAT 98
--- NOTE | 2022-08-28 20:18 | XRR_ITS ---
PROCEDURE INFORMATION: Exam: XR Left Elbow Exam date and time: 08/28/2022 8:28 PM Age: 47 years old Clinical indication: Injury or trauma; Fall; Laceration; Elbow; Left; Additional info: Fall, laceration TECHNIQUE: Imaging protocol: Radiologic exam of the left elbow. Views: 3 or more views. COMPARISON: No relevant prior studies available. FINDINGS: Bones/joints: Ulnar collateral ligament degenerative calcification proximally. Triceps tendon degenerative calcification. Soft tissues: Normal. XR/XR elbow LT min 3V* [id number] IMPRESSION: 1. Ulnar collateral ligament degenerative calcification proximally. 2. Triceps tendon degenerative calcification.
[2022-08-28] MEDS: ketorolac 60 mg/2 mL INJ IM (21:31)
--- NOTE | 2022-08-29 04:55 | ED_ITS ---
HPI - Fall General: Chief Complaint: Fall Stated Complaint: elbow lac post fall Time Seen by Provider: 08/28/22 20:18 Source: patient Mode of arrival: wheelchair Limitations: no limitations History of Present Illness: Patient presents emergency department today for evaluation treatment of left elbow pain, laceration, and bleeding after a fall. Patient states he was getting out of the shower when he slipped and fell. He indicated he impacted his left elbow but did not think much of it. It was not until he noticed he had some blood on his jeans that he realized he had cut his elbow. Patient still has flexion extension capabilities of the elbow without point specific tenderness. Last tetanus immunization was approximately 3 years ago. Review of Systems General: Reports: 10 or more systems reviewed and unremarkable except in HPI and below Physical Exam Const: COMMON NORMALS: no acute distress, patient oriented x3 and alert HENMT: COMMON NORMALS: normocephalic, atraumatic and hearing grossly normal bilaterally HEAD & SCALP: normocephalic and atraumatic Eye: COMMON NORMALS: Equal, round and reactive pupils present, EOMs intact bilaterally and conjunctivae normal CONJUNCTIVA: Yes conjunctivae normal PUPIL: Yes Equal, round and reactive pupils present Neck/C-Spine: COMMON NORMALS: full ROM and no JVD Lymph: LYMPHATIC: no lymphadenopathy noted Resp: COMMON NORMALS: normal respiratory effort, No retractions and No use of accessory muscles Cardio: COMMON NORMALS: no JVD and regular rate RATE: regular rate Extremity: NARRATIVE EXTREMITY EXAM: Patient has flexion extension capabilities of the left elbow but, is point tender around the area of the laceration on the posterior elbow. No significant swelling. Neuro: COMMON NORMALS: patient oriented x3 SENSORIUM/ORIENTATION: Yes alert Psych: COMMON NORMALS: mental status grossly normal, Normal thought process present, cooperative and normal affect THOUGHT PROCESS: Normal thought process present Skin: COMMON NORMALS: no rashes or lesions noted and turgor normal NARRATIVE SKIN EXAM: Patient has a linear laceration to the posterior elbow approximately 1 cm in length with mild wound edge separation-worse with movement of the skin. Bleeding well controlled without pressure. GENERAL SKIN EXAM: no rashes or lesions noted and turgor normal Procedures Laceration Laceration 1: Site: upper extremity (Left posterior elbow) Side (If applicable): left Size (cm): 1 Description: linear and clean Depth: simple, single layer Local Anesthetic: lidocaine 1% Amount of anesthesia used (mL): 2.5 Pre-repair: wound explored Skin layer closed with: nylon Size (cm): 4-0 Number of sutures: 3 Technique: simple, interrupted Course Vital Signs: Vital signs: Vital Signs Temperature 98.1 F 08/28/22 19:55 Pulse Rate 91 08/28/22 19:55 Respiratory Rate 16 08/28/22 19:55 Pulse Oximetry 98 08/28/22 19:55 Oxygen Delivery Me thod Room Air 08/28/22 19:55 MDM - Fall Medical Decision Making Patient's x-ray today was read negative for signs of any acute bony abnormality. I was suspicious for potential avulsion fracture in 1 site however, x-ray interpretation read it as calcification of the connective tissue. Patient's wound was able to be anesthetized, cleaned with Betadine, and repaired using 4-0 nylon sutures. Explained to the patient that these will need to be removed in 7 to 10 days. We went over daily wound care and emphasized specific suture care to prevent pulling or snagging. Patient's tetanus is currently up-to-date and did not require injection today. Encourage patient to keep the wound wrapped to help keep the elbow straight to prevent accidental flexion and pulling of the sutures through the wound. Patient cannot follow-up with a primary care doctor next week for suture removal and general recheck as needed. However, return precautions given for concerns of infection of the skin or the joint. Patient verbalized understanding and agreement to treatment plan. Differential Diagnosis Likely dislocation of shoulder region (Elbow fracture, elbow contusion, open fracture, laceration, abrasion) Discharge Plan Discharge Patient Disposition: Home Clinical Impression: Elbow laceration Condition: Stable Prescriptions: No Action diclofenac sodium 75 mg tablet,delayed release (DR/EC) 75 mg PO Q12H PRN (Reason: pain) Qty: 20 0RF colchicine 0.6 mg tablet 0.6 mg PO DAILY Qty: 6 0RF Rx Instructions: Take 2 tablets when prescription is filled, repeat 1 tablet in 1 hour. Repeat dosing in 3 days if needed. Discharge Orders: Discharge ED (Routine); Ordered 08/28/22 Ordered By: Alison Lara Referrals: Ruth Puckett DO [Primary Care Provider] - Patient Instructions: Care For Your Stitches (ED), Laceration (ED) Activity Restrictions/Additional Instructions: X-ray today showed no signs of any acute fractures though you do have some signs of calcification of your connective tissues in your left elbow. Your wound was cleaned using Betadine and repaired with 3, nonabsorbable sutures. The sutures need to be removed in 7 to 10 days. We do recommend to keep your elbow straight as possible as any flexion of the elbow can cause pulling of the sutures causing tearing through the wound edges and reopening of the wound. Your bleeding resolved with repair of the wound and should remain relatively resolved until healed. We do recommend washing the area once a day with warm water and a mild soap. Be very careful not to catch or snagged the sutures on linens, towels, or clothing items. We do recommend keeping the area covered with bandaging and wrapped-this will also help keep your elbow extended and help prevent accidental flexion of the joint. For any reason you get sudden swelling of the elbow, redness at the wound site or a draining from the wound with thick green or yellow material we recommend being seen and reevaluated. Coding Level of Care Code ED Aircraft Engine Specialist for Guilherme Barnes
== END 2022-08-28 22:38 | disposition home or self-care (01) ==
PROVIDERS: Emergency Provider Physician Assistant; PCP Family Medicine
DX: S51.012A Laceration without foreign body of left elbow, initial encounter (principal); W18.2XXA Fall in (into) shower or empty bathtub, initial encounter
CPT/HCPCS: 12001; 73080; 96372; 99284; J1885

== ENCOUNTER 2022-10-07 21:46 | Emergency (ER) | payer MEDICARE, MEDICAID, SELFPAY ==
[2022-10-07 21:53] VITALS: BP 159/88; PULSE 99; RESP 14; TEMP 36.5; O2SAT 96
--- NOTE | 2022-10-07 22:10 | ECG_ITS ---
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 Measurements Intervals Pinson Rate: 91 P: 30 IN: 140 QRS: 85 QRSD: 103 T: 32 QT: 327 QTc: 403 Interpretive Statements SINUS RHYTHM No previous ECG available for comparison Electronically Signed On 10-08-2022 14:46:28 CDT by Alex Alexandre M.D. [id number]
[2022-10-07 22:34] VITALS: BP 131/71; PULSE 74; RESP 16; O2SAT 93
--- NOTE | 2022-10-07 22:49 | XRR_ITS ---
PROCEDURE INFORMATION: Exam: XR Chest Exam date and time: 10/07/2022 10:54 PM Age: 47 years old Clinical indication: Pain; Chest pressure; Additional info: Cp TECHNIQUE: Imaging protocol: Radiologic exam of the chest. Views: 1 view. COMPARISON: CR (CHEST, ) 10/08/2021 6:36 PM FINDINGS: Lungs: Lungs are clear. Pleural spaces: No pleural effusion. No pneumothorax. Heart/Mediastinum: Normal cardiomediastinal silhouette. Bones/joints: No acute osseous abnormality. XR/XR chest 1V portable [id number] IMPRESSION: No acute findings.
[2022-10-07 23:34] VITALS: BP 136/71; PULSE 88; RESP 14; O2SAT 94
--- NOTE | 2022-10-07 23:48 | CTR_ITS ---
PROCEDURE INFORMATION: Exam: CT Abdomen And Pelvis With Contrast Exam date and time: 10/08/2022 12:53 AM Age: 47 years old Clinical indication: Injury or trauma; Fall; Crushing TECHNIQUE: Imaging protocol: Computed tomography of the abdomen and pelvis with contrast. Radiation optimization: All CT scans at this facility use at least one of these dose optimization techniques: automated exposure control; mA and/or kV adjustment per patient size (includes targeted exams where dose is matched to clinical indication); or iterative reconstruction. Contrast material: OMNI 350; Contrast volume: 100 ml; Contrast route: INTRAVENOUS (IV); REPORTING DATA: Count of CT and Cardiac NM exams in prior 12 months: This patient has received 0 known CTs and 0 known cardiac nuclear medicine studies in the 12 months prior to the current study. COMPARISON: CR XR abdomen 1V* [id number] 09/23/2020 1:10 PM RADIATION DOSE METRICS: Total DLP (mGy-cm): 956.2 FINDINGS: Liver: Unremarkable. Gallbladder and bile ducts: Status post cholecystectomy. Pancreas: Unremarkable. Spleen: Calcified granulomas in the spleen. Adrenal glands: Unremarkable. Kidneys and ureters: Unremarkable. No hydronephrosis. Stomach and bowel: No evidence of bowel obstruction. Appendix: Status post appendectomy. Intraperitoneal space: Unremarkable. Vasculature: Unremarkable. Lymph nodes: Unremarkable. Urinary bladder: Unremarkable as visualized. Reproductive: Unremarkable as visualized. Bones/joints: No acute fracture. Soft tissues: Unremarkable. CT/CT abdomen pelvis w con* [id number] IMPRESSION: No evidence of acute traumatic injury in the abdomen and pelvis.
[2022-10-07 23:51] LABS: INR 0.87 (0.8-1.2)
[2022-10-07 23:55] LABS: Alanine Aminotransferase 32 U/L (0-41); Albumin Level 4.5 g/dL (3.5-5.2); Alkaline Phosphatase 87 U/L (40-130); Anion Gap 15.6 (5-19); Aspartate Amino Transferase 19 U/L (0-40); Blood Urea Nitrogen 12 mg/dL (6-20); Calcium 9.4 mg/dL (8.5-10.5); Carbon Dioxide 23 mmol/L (22-29); Chloride 104 mmol/L (98-107); Globulin 2.8 g/dL (1.3-4.6); Glomerular Filtration Rate 91.3 mL/min (90-130); Glucose 147 mg/dL (65-115); Lipase 30 U/L (13-60); Osmolality Calculated 290 mOsm/kg (285-295); Potassium 3.6 mmol/L (3.5-5.1); Sodium 139 mmol/L (136-145); Total Bilirubin 0.3 mg/dL (0.15-1.2); Total Protein 7.3 g/dL (6.6-8.7)
[2022-10-07 23:56] LABS: Troponin(5th) Baseline 8 ng/L (0-15)
[2022-10-08 00:12] LABS: Basophils # 0.1 10^3/uL (0.0-0.1); Basophils % 0.4 %; Eosinophils # 0.6 10^3/uL (0.0-0.8); Eosinophils % 5.6 %; Hematocrit 44.5 % (42.0-52.0); Hemoglobin 13.8 g/dL (11.7-16.6); Lymphocytes # 3.3 10^3/uL (0.8-4.8); Lymphocytes % 28.3 %; Mean Corpuscular Hemoglobin 23.1 pg (28.0-34.0); Mean Corpuscular Volume 74.4 fl (80-94); Mean Platelet Volume 12.4 fL (7.4-10.4); Monocytes # 0.9 10^3/uL (0.2-0.9); Monocytes % 7.7 %; Neutrophils # 6.62 10^3/uL (1.8-7.7); Neutrophils % 57.6 %; Nucleated Red Blood Cells % 0 %; Platelet Count 306 10^3/cmm (130-400); Red Blood Count 5.98 10^6/uL (4.1-5.3); Red Cell Distribution Width 18.9 % (12.1-15.1); White Blood Count 11.5 10^3/uL (4.0-10.0)
[2022-10-08 00:13] LABS: Slide Review Slide Review Perform
--- NOTE | 2022-10-08 00:14 | W.ED.FALL ---
HPI - Fall General: Chief Complaint: Fall Stated Complaint: fall, left side pain Time Seen by Provider: 10/07/22 23:37 Source: patient Mode of arrival: ambulatory Limitations: no limitations History of Present Illness: 47-year-old male states he was ambulating 2 days ago with his walker and fell he states he fell on the left side of his walker with his abdomen. He had bruising to the left side of his abdomen and pain. He states pains been sharp in nature and worsening he rates his pain a 7 out of 10. He denies any other injuries denies hitting his head. Denies any vomiting or diarrhea. Associated symptoms-after fall: Reports abdominal pain; Denies chest pain, headache(s) or neck pain Review of Systems Const: Denies: fever(s), chills or body aches Eyes: Denies: eye discomfort ENMT: Denies: throat pain or dental pain Card: Denies: chest pain Resp: Denies: dyspnea GI: Reports: abdominal pain; Denies: nausea, vomiting or diarrhea Musc: Denies: neck pain or back pain Skin/Breast: Denies: rash Neuro: Denies: headache(s) Physical Exam Const: COMMON NORMALS: no acute distress, patient oriented x3 and healthy appearing HENMT: COMMON NORMALS: normocephalic and atraumatic HEAD & SCALP: normocephalic and atraumatic Neck/C-Spine: COMMON NORMALS: full ROM and supple Chest: COMMONS NORMALS: normal inspection of the chest and normal palpation of entire chest wall Resp: COMMON NORMALS: normal respiratory effort, No retractions, No use of accessory muscles and clear to auscultation bilaterally AUSCULTATION: clear to auscultation bilaterally Cardio: COMMON NORMALS: regular rate, regular rhythm and No murmurs present (Cardio) RATE: regular rate RHYTHM: regular rhythm GI: COMMON NORMALS: no masses OTHER: Tenderness over left lower abdomen he does have a contusion to left lower abdomen. Extremity: COMMON NORMALS: normal to inspection and full ROM Neuro: COMMON NORMALS: patient oriented x3, moves all extremities and no focal motor deficits Psych: COMMON NORMALS: mental status grossly normal, Normal thought process present and cooperative THOUGHT PROCESS: Normal thought process present Skin: COMMON NORMALS: no rashes or lesions noted and no wounds GENERAL SKIN EXAM: no rashes or lesions noted Course Vital Signs: Vital signs: Vital Signs Temperature 97.7 F 10/07/22 21:53 Pulse Rate 99 10/07/22 21:53 Respiratory Rate 14 10/07/22 21:53 Blood Pressure 159/88 10/07/22 21:53 Pulse Oximetry 96 10/07/22 21:53 Oxygen Delivery Me thod Room Air 10/07/22 21:53 MDM - Fall Medical Decision Making Patient presents here with abdominal wall contusion from a fall CT scan here shows no intra-abdominal injuries he is well-appearing here he is stable for discharge he is to follow-up his PCP and return if worsening Medical Records I reviewed the patient's medical records. Lab Data I reviewed the patient's lab results. 10/07/22 23:11 10/07/22 23:11 Radiology Impressions Chest X-Ray 10/07/22 22:49 IMPRESSION: No acute findings. Abdomen/Pelvis CT 10/07/22 23:48 IMPRESSION: No evidence of acute traumatic injury in the abdomen and pelvis. Laboratory Results WBC 11.5 10^3/uL (4.0-10.0) H 10/07/22 23:11 RBC 5.98 10^6/uL (4.1-5.3) H 10/07/22 23:11 Hgb 13.8 g/dL (11.7-16.6) 10/07/22 23:11 Hct 44.5 % (42.0-52.0) 10/07/22 23:11 MCV 74.4 fl (80-94) L 10/07/22 23:11 MCH 23.1 pg (28.0-34.0) L 10/07/22 23:11 MCHC 31.0 g/dL (30.0-36.0) 10/07/22 23:11 RDW 18.9 % (12.1-15.1) H 10/07/22 23:11 Plt Count 306 10^3/cmm (130-400) 10/07/22 23:11 MPV 12.4 fL (7.4-10.4) H 10/07/22 23:11 Neut % (Auto) 57.6 % 10/07/22 23:11 Lymph % (Auto) 28.3 % 10/07/22 23:11 Menard % (Auto) 7.7 % 10/07/22 23:11 Eos % (Auto) 5.6 % 10/07/22 23:11 Baso % (Auto) 0.4 % 10/07/22 23:11 Neut # (Auto) 6.62 10^3/uL (1.8-7.7) 10/07/22 23:11 Lymph # (Auto) 3.3 10^3/uL (0.8-4.8) 10/07/22 23:11 Menard # (Auto) 0.9 10^3/uL (0.2-0.9) 10/07/22 23:11 Eos # (Auto) 0.6 10^3/uL (0.0-0.8) 10/07/22 23:11 Baso # (Auto) 0.1 10^3/uL (0.0-0.1) 10/07/22 23:11 Nucleated RBC % (auto) 0 % 10/07/22 23:11 Nucleated RBCs # 0.0 /100WBC 10/07/22 23:11 PT 12.10 SECONDS (12.1-14.9) 10/07/22 23:11 INR 0.87 (0.8-1.2) 10/07/22 23:11 Sodium 139 mmol/L (136-145) 10/07/22 23:11 Potassium 3.6 mmol/L (3.5-5.1) 10/07/22 23:11 Chloride 104 mmol/L (98-107) 10/07/22 23:11 Carbon Dioxide 23 mmol/L (22-29) 10/07/22 23:11 Anion Gap 15.6 (5-19) 10/07/22 23:11 BUN 12 mg/dL (6-20) 10/07/22 23:11 Creatinine 0.9 mg/dL (0.7-1.2) 10/07/22 23:11 GFR Calculation 91.3 mL/min (90-130) 10/07/22 23:11 Glucose 147 mg/dL (65-115) H 10/07/22 23:11 Calculated Osmolality 290 mOsm/kg (285-295) 10/07/22 23:11 Calcium 9.4 mg/dL (8.5-10.5) 10/07/22 23:11 Total Bilirubin 0.3 mg/dL (0.15-1.2) 10/07/22 23:11 AST 19 U/L (0-40) 10/07/22 23:11 ALT 32 U/L (0-41) 10/07/22 23:11 Alkaline Phosphatase 87 U/L (40-130) 10/07/22 23:11 Troponin T Baseline 8 ng/L (0-15) 10/07/22 23:11 Total Protein 7.3 g/dL (6.6-8.7) 10/07/22 23:11 Albumin 4.5 g/dL (3.5-5.2) 10/07/22 23:11 Globulin 2.8 g/dL (1.3-4.6) 10/07/22 23:11 Lipase 30 U/L (13-60) 10/07/22 23:11 EKG Data EKG 1: I personally reviewed and interpreted this EKG as follows: EKG interpretation date: 10/07/22 EKG interpretation time: 22:10 Interpretation: nsr hr [address] or t wave abnormalities qrs 103 qtc 375 Discharge Plan Discharge Patient Disposition: Home Clinical Impression: Abdominal wall contusion, Fall Condition: Stable Prescriptions: No Action diclofenac sodium 75 mg tablet,delayed release (DR/EC) 75 mg PO Q12H PRN (Reason: pain) Qty: 20 0RF colchicine 0.6 mg tablet 0.6 mg PO DAILY Qty: 6 0RF Rx Instructions: Take 2 tablets when prescription is filled, repeat 1 tablet in 1 hour. Repeat dosing in 3 days if needed. Discharge Orders: Discharge ED (Routine); Ordered 10/08/22 Ordered By: Yung West Referrals: Ruth Puckett DO [Primary Care Provider] - 1-3 days Discharge Diet: Advance as tolerated Discharge Activity: Resume usual activity Patient Instructions: Contusion in Adults (ED) Coding Level of Care Code ED Domestic Freight Forwarder for Guilherme Barnes
--- NOTE | 2022-10-08 00:49 | ECG_ITS ---
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 Measurements Intervals Leslie Rate: 69 P: 30 NV: 204 QRS: 52 QRSD: 101 T: 35 QT: 378 QTc: 406 Interpretive Statements SINUS RHYTHM Compared to ECG 10/07/2022 22:10:36 No significant changes Electronically Signed On 10-08-2022 14:53:06 CDT by Alex Alexandre M.D. [id number]
[2022-10-08] MEDS: iohexol 350 mg/mL 500 mL Btl (per mL) IV (00:54)
[2022-10-08 02:12] VITALS: PULSE 80; RESP 18; O2SAT 97
== END 2022-10-08 01:30 | disposition home or self-care (01) ==
PROVIDERS: Emergency Provider Emergency Medicine; PCP Family Medicine
DX: S30.1XXA Contusion of abdominal wall, initial encounter (principal); W18.30XA Fall on same level, unspecified, initial encounter
CPT/HCPCS: 36415; 71045; 74177; 80053; 83690; 84484; 85025; 85610; 93005; 99285; Q9967

== ENCOUNTER 2022-10-26 21:10 | Emergency (ER) | payer MEDICARE, MEDICAID, SELFPAY ==
[2022-10-26 21:16] VITALS: BP 134/75; PULSE 77; RESP 16; TEMP 36.6; O2SAT 97; BMI 33.2
--- NOTE | 2022-10-26 21:21 | ED_ITS ---
HPI - Extremity Problem General: Chief complaint: Extremity Injury, Lower Stated complaint: right foot pain Time Seen by Provider: 10/26/22 21:21 History of Present Illness: 47-year-old male patient comes in today for complaints of a blister to the right lateral foot at the fifth digit with increased redness and swelling. Patient reported noticing a blister about 3 days ago, he ruptured the blister and peeled off the skin since then he has had increasing redness and swelling to the site. Patient denies any fever or chills. Patient does take metformin but states he does not have diabetes. Patient has a history of cellulitis to the foot and gout. Review of Systems Musc: Reports: extremity pain and extremity swelling Skin/Breast: Reports: new lesions Physical Exam Const: COMMON NORMALS: alert HENMT: COMMON NORMALS: normocephalic HEAD & SCALP: normocephalic Neck/C-Spine: COMMON NORMALS: full ROM Resp: COMMON NORMALS: normal respiratory effort and clear to auscultation bilaterally AUSCULTATION: clear to auscultation bilaterally Cardio: COMMON NORMALS: regular rate and regular rhythm RATE: regular rate RHYTHM: regular rhythm Extremity: RIGHT LOWER EXTREMITY: Yes foot & digits (2 cm circular ulcer to the lateral right foot with area of redness surround) Neuro: SENSORIUM/ORIENTATION: Yes alert Skin: WOUNDS: Yes wounds noted (Right lateral foot) with surrounding erythema Course Vital Signs: Vital signs: Vital Signs Temperature 97.9 F 10/26/22 21:16 Pulse Rate 77 10/26/22 21:16 Respiratory Rate 16 10/26/22 21:16 Blood Pressure 134/75 10/26/22 21:16 Pulse Oximetry 97 10/26/22 21:16 Oxygen Delivery Me thod Room Air 10/26/22 21:16 MDM - Extremity (Nontraumatic) Medical Decision Making 47-year-old male patient comes in with a infected wound to the right foot. On exam patient has some redness surrounding the ulcer is approximately 2 cm to the right foot. Patient has pink granulation tissue to the ulcer. Patient has strong pedal pulses. Vital signs are normal. Differential diagnosis includes but not limited to infected wound, chronic foot ulcer, lymphangitis, gouty arthritis. Patient has a open wound to the foot with surrounding redness suggesting a wound infection. Patient be started on Augmentin and mupirocin ointment. Patient was recommended to elevate the foot is much as possible. I recommended monitoring for systemic symptoms such as fever increasing redness and swelling and pain. Patient reported understanding of care plan and need for follow-up. Case management was requested to have patient follow-up with podiatry for further evaluation and treatment and monitoring for the wound healing and possible further wound care. Patient reported understanding and agreed to plan. Discharge Plan Discharge Patient Disposition: Home Clinical Impression: Cellulitis of foot, Wound infection Condition: Stable Prescriptions: New amoxicillin-pot clavulanate 875-125 mg tablet 1 tab PO BID Qty: 20 0RF No Action diclofenac sodium 75 mg tablet,delayed release (DR/EC) 75 mg PO Q12H PRN (Reason: pain) Qty: 20 0RF colchicine 0.6 mg tablet 0.6 mg PO DAILY Qty: 6 0RF Rx Instructions: Take 2 tablets when prescription is filled, repeat 1 tablet in 1 hour. Repeat dosing in 3 days if needed. Discharge Orders: Discharge ED (Routine); Ordered 10/26/22 Ordered By: Esau Collier Referrals: Ruth Puckett DO [Primary Care Provider] - Discharge Diet: Usual diet Discharge Activity: Increase activity as tolerated Patient Instructions: Wound Infection (ED) Activity Restrictions/Additional Instructions: Home and rest. Wash wound twice a day with mild soap and water, apply antibiotic ointment, and cover with dressing. Wear shoes that will not put pressure on the wound. Elevate foot up as much as possible to help with swelling. Use acetaminophen or ibuprofen for pain. Take oral antibiotic 1 tablet twice a day for the next 10 days. Follow-up with primary care in 2 to 3 days. Case management will contact you regarding follow-up appointment with specialist for further evaluation and treatment. Return to ED for new concerns. Coding Level of Care Code ED Delivery Consultant for Guilherme Barnes
[2022-10-26] MEDS: mupirocin oint 22 gm 1 APPLIC TOPICAL (21:44)
[2022-10-26] MEDS: amoxicillin-clav 875-125 mg Tablet 1 TAB PO (21:44)
[2022-10-26 21:56] VITALS: BP 134/75; PULSE 77; RESP 16; TEMP 36.6; O2SAT 97
--- NOTE | 2022-10-27 07:27 | DCPLANNER ---
Addendum entered by Cristina Wise 11/04/22 10:07: Patient had a follow up appointment scheduled with ortho - patient did attend appointment. Original Note: body shop manager had message to schedule a follow up appointment for patient with podiatry. body shop manager sent patients information to the front office staff at podiatry. Patients information will be printed and reviewed. Clinic will call patient with appointment information.
== END 2022-10-26 21:58 | disposition home or self-care (01) ==
PROVIDERS: Emergency Provider Nurse Practitioner Family; PCP Family Medicine
DX: L03.115 Cellulitis of right lower limb (principal); L97.519 Non-pressure chronic ulcer of other part of right foot with unspecified severity
CPT/HCPCS: 99283

== ENCOUNTER → 2022-10-30 08:49 | Outpatient (BNVA) | payer MEDICARE, MEDICAID, SELFPAY | PROVIDERS: PCP Family Medicine; Visit Provider Podiatrist Foot & Ankle Surgery | DX: M21.621 Bunionette of right foot; M21.619 Bunion of unspecified foot; L97.512 Non-pressure chronic ulcer of other part of right foot with fat layer exposed | CPT/HCPCS: 99203 ==

== ENCOUNTER → 2022-11-18 14:38 | Outpatient (BNVA) | payer MEDICARE, MEDICAID, SELFPAY | PROVIDERS: PCP Family Medicine; Visit Provider Podiatrist Foot & Ankle Surgery | DX: M25.371 Other instability, right ankle (principal); Z51.89 Encounter for other specified aftercare; M21.621 Bunionette of right foot; M21.619 Bunion of unspecified foot | CPT/HCPCS: 99213 ==

== ENCOUNTER 2022-12-29 10:00 | Emergency (ER) | payer MEDICARE, MEDICAID, SELFPAY ==
[2022-12-29 10:03] VITALS: BP 143/78; PULSE 75; RESP 16; TEMP 36.4; O2SAT 97
--- NOTE | 2022-12-29 10:14 | CT_ITS ---
WS: [id number] CT HEAD TECHNIQUE: Noncontrast CT of the head obtained from the skullbase to the vertex. CLINICAL INFORMATION: trauma COMPARISON: None. DLP: 1285.[address] scans at [facility] use at least one of these dose optimization techniques: automated e xposure control; mA and/or kV adjustment per patient size (includes targeted exams where dose is matc hed to clinical indication); or iterative reconstruction. FINDINGS: No evidence of intracranial hemorrhage or mass effect. Ventricular system and basal cisterns are ramirez nt. Asymmetric nonspecific moderate cerebellar and vermian atrophy. No extra-axial fluid collections. No evidence of mass or mass effect. Paranasal sinuses and mastoid air cells are well aerated. .Normal visualized soft tissues. IMPRESSION: 1. No evidence of intracranial hemorrhage or mass effect. 2. Asymmetric moderate cerebellar and vermian atrophy is nonspecific but can be seen with anticonvul omaira therapy, lithium intoxication, and alcoholism 3. No acute intracranial findings.
--- NOTE | 2022-12-29 10:14 | CT_ITS ---
WS: [id number] CT CERVICAL TRAUMA TECHNIQUE: Noncontrast CT of the cervical spine with coronal and sagittal reformatted images. CLINICAL INFORMATION: trauma COMPARISON: None. DLP: 1285.[address] scans at [facility] use at least one of these dose optimization techniques: automated e xposure control; mA and/or kV adjustment per patient size (includes targeted exams where dose is matc hed to clinical indication); or iterative reconstruction. FINDINGS: Straightening with reversal of the normal cervical lordosis. Mild spondylitic changes. Normal cranioc ervical junction. Normal C1-C2 articulation. Dens is normal in appearance. Normal occipital condyles. Normal C1 ring. No evidence of acute fracture or dislocation. Mild chronic appearing anterior wedgin g C7. Disc osteophyte complex with endplate ridging C3-C4 C4-C5 and C5-C6 with mild central canal stenosis. Shallow RIGHT paracentral protrusion C3-C4 with slight indentation on the ventral cervical cord. Thi s can be followed up with MRI on an elective basis. IMPRESSION: 1. No evidence of acute fracture or dislocation. 2. Mild central canal stenosis C3-C4 C4-C5 and C5-C6 due to disc osteophyte complexes. 3. RIGHT paracentral protrusion C3-C4 with slight indentation on the ventral cervical cord. This can be followed up with MRI on an elective basis.
--- NOTE | 2022-12-29 10:15 | XRR_ITS ---
PROCEDURE INFORMATION: Exam: XR Chest Exam date and time: 12/29/2022 10:19 AM Age: 47 years old Clinical indication: Injury or trauma; Fall; Cough; Blunt trauma (contusions or hematomas); Additional info: Dyspnea/cough TECHNIQUE: Imaging protocol: Radiologic exam of the chest. Views: 1 view. COMPARISON: CR (CHEST, ) 10/07/2022 10:54 PM FINDINGS: Lungs: Calcified granuloma left upper lobe. Pleural spaces: Unremarkable. No pleural effusion. No pneumothorax. Heart/Mediastinum: Unremarkable. No cardiomegaly. Bones/joints: Unremarkable. XR/XR chest 1V portable [id number] IMPRESSION: Calcified granuloma left upper lobe. No acute process.
[2022-12-29 10:50] LABS: Basophils % 0.2 %; Eosinophils # 0.3 10^3/uL (0.0-0.8); Eosinophils % 3.8 %; Hematocrit 38.5 % (37-53); Lymphocytes # 2.5 10^3/uL (0.8-4.8); Lymphocytes % 31.3 %; Mean Corpuscular HGB Conc 30.9 g/dL (30-55); Mean Corpuscular Hemoglobin 23.1 pg (27-33); Mean Corpuscular Volume 74.6 fl (82-101); Mean Platelet Volume 12.1 fL (7.4-10.4); Monocytes # 0.7 10^3/uL (0.2-0.9); Monocytes % 8.5 %; Neutrophils % 55.7 %; Nucleated Red Blood Cells % 0 %; Platelet Count 274 10^3/cmm (157-399); Red Blood Count 5.16 10^6/uL (3.85-5.65); Red Cell Distribution Width 15.7 % (12.1-15.1); White Blood Count 8.09 10^3/uL (3.29-11.43)
[2022-12-29 11:06] LABS: Alanine Aminotransferase 33 U/L (0-41); Albumin Level 4.4 g/dL (3.5-5.2); Alkaline Phosphatase 65 U/L (40-130); Anion Gap 15.6 (5-19); Aspartate Amino Transferase 24 U/L (0-40); Blood Urea Nitrogen 13 mg/dL (6-20); Calcium 9.7 mg/dL (8.5-10.5); Carbon Dioxide 25 mmol/L (22-29); Chloride 103 mmol/L (98-107); Globulin 2.7 g/dL (1.3-4.6); Glucose 100 mg/dL (65-115); Osmolality Calculated 290 mOsm/kg (285-295); Potassium 3.6 mmol/L (3.5-5.1); Sodium 140 mmol/L (136-145); Total Bilirubin 0.5 mg/dL (0.15-1.2); Total Protein 7.1 g/dL (6.6-8.7)
[2022-12-29 11:37] VITALS: BP 134/75; PULSE 67; RESP 16; O2SAT 97
--- NOTE | 2022-12-29 11:41 | ED_ITS ---
HPI - Fall General: Chief Complaint: Fall Stated Complaint: Fall from stairs Time Seen by Provider: 12/29/22 10:14 Source: patient Mode of arrival: EMS History of Present Illness: 47-year-old male presents emergency room with a laceration above his right eye over the supraorbital ridge. He was going down the stairs after the powered gone out at his apartment building he stumbled while using a cane and fell. He has a small laceration on the inside of his lower lip and a laceration above his left eye there is no loss conscious denies neck pain. No other injuries. MD complaint: fall Onset (ago): minute(s) Fall from: standing Place fall occurred: home Loss of consciousness: None Context: tripped/slipped Associated symptoms-after fall: Denies abdominal pain, chest pain, confusion, difficulty walking, headache(s), hematuria, lightheadedness, neck pain, numbness, short of breath, vertigo or weakness Review of Systems Card: Denies: chest pain or lightheadedness GI: Denies: abdominal pain : Denies: hematuria Musc: Denies: neck pain Neuro: Denies: headache(s), difficulty walking, vertigo or confusion Physical Exam Const: GENERAL APPEARANCE: cooperative and comfortable ORIENTATION/CONSCIOUSNESS: Yes awake, Yes oriented to person, Yes oriented to place and Yes oriented to time HENMT: COMMON NORMALS: normocephalic, hearing grossly normal bilaterally, EAC's normal, TM's normal bilaterally and Normal external nose present HEAD & SCALP: normocephalic NOSE: Normal external nose present EXTERNAL AUDITORY CANAL: EAC's normal TYMPANIC MEMBRANE: TM's normal bilaterally MOUTH: Normal oral and palatal mucosa present, lip normal and tongue normal THROAT: posterior oropharynx normal and tonsils normal OTHER: Laceration on the right supraorbital ridge 2.5 cm in length Eye: COMMON NORMALS: Equal, round and reactive pupils present, EOMs intact bilaterally, conjunctivae normal and no scleral icterus CONJUNCTIVA: Yes conjunctivae normal PUPIL: Yes Equal, round and reactive pupils present Neck/C-Spine: COMMON NORMALS: full ROM, no lymphadenopathy, supple, no meningeal signs and Thyroid normal THYROID: Thyroid normal and asymmetrical Resp: COMMON NORMALS: normal respiratory effort, No retractions, No use of accessory muscles and clear to auscultation bilaterally AUSCULTATION: clear to auscultation bilaterally Cardio: COMMON NORMALS: regular rate, regular rhythm and No murmurs present (Cardio) RATE: regular rate RHYTHM: regular rhythm GI: COMMON NORMALS: Soft to palpation and No hepatosplenomegaly present AUSCULTATION: Yes normoactive bowel sounds PALPATION: Yes Soft to palpation, No Tenderness to palpation present (GI), No Guarding due to palpation present (GI) and Yes No hepatosplenomegaly present Extremity: COMMON NORMALS: normal to inspection, capillary refill normal, no clubbing, cyanosis or edema, no calf tenderness and no pedal edema Neuro: SENSORIUM/ORIENTATION: Yes oriented to person, Yes oriented to place and Yes oriented to time MENINGEAL SIGNS: Yes no meningeal signs Skin: COMMON NORMALS: no rashes or lesions noted GENERAL SKIN EXAM: no rashes or lesions noted Procedures Laceration Laceration 1: Site: face Side (If applicable): right Size (cm): 2.5 Description: linear Depth: simple, single layer Local Anesthetic: lidocaine 1% and with epi Amount of anesthesia used (mL): 2 Pre-repair: irrigated extensively Skin layer closed with: nylon Size (cm): 5-0 Number of sutures: 3 Technique: simple, interrupted Course Vital Signs: Vital signs: Vital Signs Temperature 97.6 F 12/29/22 10:03 Pulse Rate 69 12/29/22 13:21 Respiratory Rate 16 12/29/22 13:21 Blood Pressure 142/70 12/29/22 13:21 Pulse Oximetry 99 12/29/22 13:21 Oxygen Delivery Me thod Room Air 12/29/22 10:03 MDM - Fall Medical Decision Making Laceration. Labs and imaging reviewed no significant findings discharge home sutures out in 5 to 7 days. Medical Records I reviewed the patient's medical records. Lab Data I reviewed the patient's lab results. 12/29/22 10:40 12/29/22 10:40 Radiology Impressions Chest X-Ray 12/29/22 10:15 IMPRESSION: Calcified granuloma left upper lobe. No acute process. Laboratory Results WBC 8.09 10^3/uL (3.29-11.43) 12/29/22 10:40 RBC 5.16 10^6/uL (3.85-5.65) 12/29/22 10:40 Hgb 11.90 g/dL (11.27-16.99) 12/29/22 10:40 Hct 38.5 % (37-53) 12/29/22 10:40 MCV 74.6 fl (82-101) L 12/29/22 10:40 MCH 23.1 pg (27-33) L 12/29/22 10:40 MCHC 30.9 g/dL (30-55) 12/29/22 10:40 RDW 15.7 % (12.1-15.1) H 12/29/22 10:40 Plt Count 274 10^3/cmm (157-399) 12/29/22 10:40 MPV 12.1 fL (7.4-10.4) H 12/29/22 10:40 Neut % (Auto) 55.7 % 12/29/22 10:40 Lymph % (Auto) 31.3 % 12/29/22 10:40 Moody % (Auto) 8.5 % 12/29/22 10:40 Eos % (Auto) 3.8 % 12/29/22 10:40 Baso % (Auto) 0.2 % 12/29/22 10:40 Neut # (Auto) 4.50 10^3/uL (1.8-7.7) 12/29/22 10:40 Lymph # (Auto) 2.5 10^3/uL (0.8-4.8) 12/29/22 10:40 Moody # (Auto) 0.7 10^3/uL (0.2-0.9) 12/29/22 10:40 Eos # (Auto) 0.3 10^3/uL (0.0-0.8) 12/29/22 10:40 Baso # (Auto) 0.0 10^3/uL (0.0-0.1) 12/29/22 10:40 Nucleated RBC % (auto) 0 % 12/29/22 10:40 Nucleated RBCs # 0.0 /100WBC 12/29/22 10:40 Sodium 140 mmol/L (136-145) 12/29/22 10:40 Potassium 3.6 mmol/L (3.5-5.1) 12/29/22 10:40 Chloride 103 mmol/L (98-107) 12/29/22 10:40 Carbon Dioxide 25 mmol/L (22-29) 12/29/22 10:40 Anion Gap 15.6 (5-19) 12/29/22 10:40 BUN 13 mg/dL (6-20) 12/29/22 10:40 Creatinine 0.7 mg/dL (0.7-1.2) 12/29/22 10:40 GFR Calculation 122.0 mL/min (90-130) 12/29/22 10:40 Glucose 100 mg/dL (65-115) 12/29/22 10:40 Calculated Osmolality 290 mOsm/kg (285-295) 12/29/22 10:40 Calcium 9.7 mg/dL (8.5-10.5) 12/29/22 10:40 Total Bilirubin 0.5 mg/dL (0.15-1.2) 12/29/22 10:40 AST 24 U/L (0-40) 12/29/22 10:40 ALT 33 U/L (0-41) 12/29/22 10:40 Alkaline Phosphatase 65 U/L (40-130) 12/29/22 10:40 Total Protein 7.1 g/dL (6.6-8.7) 12/29/22 10:40 Albumin 4.4 g/dL (3.5-5.2) 12/29/22 10:40 Globulin 2.7 g/dL (1.3-4.6) 12/29/22 10:40 All radiology interpretation(s) finalized by discharge Discharge Plan Discharge Patient Disposition: Home Clinical Impression: Facial laceration, Fall Condition: Stable Prescriptions: New mupirocin 2 % ointment 1 applic topical DAILY Qty: 15 0RF No Action (DME) articulating AFO See Rx Instructions .Route .MEDSUPPLY Qty: 1 0RF Rx Instructions: As directed to [facility] [place] atorvastatin 20 mg tablet 20 mg PO QAM ibuprofen 800 mg tablet 800 mg PO TID PRN (Reason: Pain) metoprolol succinate 100 mg tablet extended release 24 hr 100 mg PO QAM losartan-hydrochlorothiazide 100-25 mg tablet 1 tab PO QAM tamsulosin 0.4 mg capsule 4 mg PO QAM pantoprazole 40 mg tablet,delayed release (DR/EC) 40 mg PO QAM allopurinol 300 mg tablet 300 mg PO BID albuterol sulfate 90 mcg/actuation HFA aerosol inhaler 2 inh INHALATION Q4H PRN (Reason: Shortness Of Breath Or Wheezing) fluticasone propionate 50 mcg/actuation spray,suspension 2 spray INTRANASAL QAM metformin 750 mg tablet extended release 24 hr 750 mg PO QAM Multi-Vitamins Tablet 1 tab PO QAM garlic 1,000 mg Capsule 1,000 mg PO BID Super B Complex Tablet 1 tab PO DAILY Fish Oil 60-90-500 mg Capsule 1 cap PO DAILY Metamucil 3.4 gram/5.4 gram Powder 1 tbsp PO DAILY Rx Instructions: mix into at least 8 oz of water or juice before administering diclofenac sodium 75 mg tablet,delayed release (DR/EC) 75 mg PO Q12H PRN (Reason: pain) Qty: 20 0RF Discharge Orders: Discharge ED (Routine); Ordered 12/29/22 Ordered By: Medhat Joseph Referrals: Ruth Puckett DO [Primary Care Provider] - Discharge Diet: Usual diet Discharge Activity: Resume usual activity Patient Instructions: Opioid Safety, Pain Management Activity Restrictions/Additional Instructions: Apply topical antibiotic ointment daily to the wound. Sutures to be removed in 1 week. Coding Level of Care Code ED Civil Engineering Draftsperson for Guilherme Barnes
--- NOTE | 2022-12-29 11:43 | PC.NURSE ---
PT HAS APPROX 4 CM LACERATION ABOVE LEFT EYE. PT STATES HE HAD A TETANUS SHOT 3 YEARS AGO. PT REFUSED CURRENT ORDER FOR TETANUS VACCINE.
[2022-12-29 12:07] VITALS: BP 108/61; PULSE 73; RESP 16; O2SAT 97
[2022-12-29 12:30] VITALS: BP 142/70; PULSE 69; RESP 16; O2SAT 99
[2022-12-29] MEDS: lidocaine-epi 1% 20 mL INJ INJECTION (13:01)
[2022-12-29 13:21] VITALS: BP 142/70; PULSE 69; RESP 16; O2SAT 99
--- NOTE | 2023-01-05 11:48 | PC.NURSE ---
pt returned today for stitch removal. 3 sutures removed at this time. incision is healing and well approximated.
== END 2022-12-29 13:00 | disposition home or self-care (01) ==
PROVIDERS: Emergency Provider Family Medicine; PCP Family Medicine
DX: S01.511A Laceration without foreign body of lip, initial encounter (principal); S01.81XA Laceration without foreign body of other part of head, initial encounter; W01.0XXA Fall on same level from slipping, tripping and stumbling without subsequent striking against object, initial encounter; Z79.84 Long term (current) use of oral hypoglycemic drugs
CPT/HCPCS: 12011; 36415; 70450; 71045; 72125; 80053; 85025; 99284

== ENCOUNTER → 2023-01-26 14:05 | Outpatient (BNVA) | payer MEDICARE, MEDICAID, SELFPAY | PROVIDERS: PCP Family Medicine; Visit Provider Podiatrist Foot & Ankle Surgery | DX: M25.371 Other instability, right ankle; M21.621 Bunionette of right foot; M21.619 Bunion of unspecified foot; M25.372 Other instability, left ankle | CPT/HCPCS: 99213 ==

== ENCOUNTER 2023-03-06 19:51 | Emergency (ER) | payer MEDICARE, MEDICAID, SELFPAY ==
[2023-03-06 19:56] VITALS: BP 146/93; PULSE 63; RESP 16; TEMP 36.8; O2SAT 98; BMI 33.3
--- NOTE | 2023-03-06 20:20 | W.ED.EXTPRO ---
HPI - Extremity Problem General: Chief complaint: Extremity Injury, Upper Stated complaint: Rt Shoulder pain Time Seen by Provider: 03/06/23 20:02 Source: patient Mode of arrival: ambulatory Limitations: no limitations History of Present Illness: Patient is a nice 47-year-old male who presents to ED today with a complaint of pain and burning to the right side of his neck radiating down into his right shoulder and down his right arm. Symptoms began approximately 3 days ago. Denies any injury or trauma. He states pain is intermittent and brief. He states he cannot identify any aggravating or relieving factors to his discomfort. He has not noticed any numbness, tingling, loss of sensation to the arm. He has not noticed any color or temperature changes. No swelling. No recent chiropractor care/manipulation. He states it feels like the muscles are on fire . Onset (ago): day(s) Pain Consistency: intermittent Location: right, upper extremity and other (neck) Quality: burning Radiation: none Relieving factors: nothing Exacerbating factors: nothing Associated symptoms: Reports no associated symptoms; Deny chest pain, fever(s) or rash Review of Systems Const: Denies: fever(s), chills, body aches, fatigue or malaise Card: Denies: chest pain Resp: Denies: dyspnea Musc: Reports: neck pain and joint pain; Denies: back pain, extremity pain, extremity swelling, joint swelling, joint redness, joint warmth, limited range of motion, muscle cramps or muscle weakness Skin/Breast: Denies: rash Neuro: Denies: numbness in extremities, weakness in extremities or sensory changes Physical Exam Const: COMMON NORMALS: no acute distress, patient oriented x3, no limitations and alert GENERAL APPEARANCE: cooperative NUTRITIONAL APPEARANCE: overweight ORIENTATION/CONSCIOUSNESS: Yes awake, Yes oriented to person, Yes oriented to place and Yes oriented to time Neck/C-Spine: COMMON NORMALS: full ROM, no lymphadenopathy, no meningeal signs and no JVD GENERAL: Yes normal visual inspection, No anterior neck swelling and No submandibular swelling CERVICAL SPINE: Yes cervical ROM normal, No pain with cervical ROM, No Cervical spine tenderness, No step off deformity, No Paracervical muscle tenderness and No Lhermitte's sign positive OTHER: negative Spurling's Chest: COMMONS NORMALS: normal inspection of the chest Resp: COMMON NORMALS: normal respiratory effort and clear to auscultation bilaterally AUSCULTATION: clear to auscultation bilaterally Cardio: COMMON NORMALS: no JVD, regular rate and regular rhythm RATE: regular rate RHYTHM: regular rhythm Back/Pelvis: COMMON NORMALS: thoracic and lumbar spine normal to inspection, no thoracic nor lumbar tenderness and thoraco-lumbar ROM normal Extremity: COMMON NORMALS: normal to inspection, full ROM, capillary refill normal, no joint enlargement and no clubbing, cyanosis or edema GENERAL: Yes normal exam except as noted RIGHT UPPER EXTREMITY: Yes shoulder joint Right shoulder: Yes Right shoulder joint ROM exam (full ROM but pain with flexion/extension) and Yes Right shoulder joint neurovascular exam (normal) OTHER: no swelling to R UE noted; no color/temp changes noted; sensation normal; pulses equal throughout extremity; fairly good ROM; no bony tenderness Neuro: COMMON NORMALS: patient oriented x3, moves all extremities, no focal motor deficits and no sensory deficits noted SENSORIUM/ORIENTATION: Yes alert, Yes oriented to person, Yes oriented to place and Yes oriented to time MENINGEAL SIGNS: Yes no meningeal signs MOTOR EXAM: 5/5 motor strength present throughout (strength 5/5 in all myotomes of R UE) Course Vital Signs: Vital signs: Vital Signs Temperature 98.2 F 03/06/23 19:56 Pulse Rate 80 03/06/23 20:40 Respiratory Rate 14 03/06/23 20:40 Blood Pressure 156/72 03/06/23 20:40 Pulse Oximetry 98 03/06/23 20:40 Oxygen Delivery Me thod Room Air 03/06/23 20:25 MDM - Extremity (Nontraumatic) Medical Decision Making Patient here with complaints of right-sided neck pain radiating down into his right arm. He has no motor or sensory deficits on exam. No history of injury or trauma. Patient will be treated with muscle relaxers and steroids. He states he has already been taking ibuprofen. Recommend he follow-up with primary care next week if symptoms do not seem to be improving. Return to ED precautions given. No radiology studies performed this visit Discharge Plan Discharge Patient Disposition: Home Clinical Impression: Cervical radicular pain Condition: Stable Prescriptions: New methocarbamol 500 mg tablet 1,000 mg PO Q8H Qty: 30 0RF Medrol (Wan) 4 mg tablets,dose pack See Rx Instructions .ROUTE .COMPLEX Qty: 21 0RF Rx Instructions: orally per package directions No Action (DME) articulating AFO See Rx Instructions .Route .MEDSUPPLY Qty: 1 0RF Rx Instructions: As directed to [facility] [place] (DME) articulating AFO See Rx Instructions .Route .MEDSUPPLY Qty: 1 0RF Rx Instructions: As directed to [facility] [place] atorvastatin 20 mg tablet 20 mg PO QAM ibuprofen 800 mg tablet 800 mg PO TID PRN (Reason: Pain) metoprolol succinate 100 mg tablet extended release 24 hr 100 mg PO QAM losartan-hydrochlorothiazide 100-25 mg tablet 1 tab PO QAM tamsulosin 0.4 mg capsule 4 mg PO QAM pantoprazole 40 mg tablet,delayed release (DR/EC) 40 mg PO QAM allopurinol 300 mg tablet 300 mg PO BID albuterol sulfate 90 mcg/actuation HFA aerosol inhaler 2 inh INHALATION Q4H PRN (Reason: Shortness Of Breath Or Wheezing) fluticasone propionate 50 mcg/actuation spray,suspension 2 spray INTRANASAL QAM metformin 750 mg tablet extended release 24 hr 750 mg PO QAM Multi-Vitamins Tablet 1 tab PO QAM garlic 1,000 mg Capsule 1,000 mg PO BID Super B Complex Tablet 1 tab PO DAILY Fish Oil 60-90-500 mg Capsule 1 cap PO DAILY Metamucil 3.4 gram/5.4 gram Powder 1 tbsp PO DAILY Rx Instructions: mix into at least 8 oz of water or juice before administering mupirocin 2 % ointment 1 applic topical DAILY Qty: 15 0RF diclofenac sodium 75 mg tablet,delayed release (DR/EC) 75 mg PO Q12H PRN (Reason: pain) Qty: 20 0RF Discharge Orders: Discharge ED (Routine); Ordered 03/06/23 Ordered By: Indira Chatterjee Referrals: Ruth Puckett DO [Primary Care Provider] - Coding Level of Care Code ED Digital Controls Technical Officer for Guilherme Barnes
[2023-03-06 20:25] VITALS: BP 156/72; PULSE 79; RESP 14; O2SAT 96
[2023-03-06] MEDS: dexamethasone 10 mg/mL INJ IM (20:35)
[2023-03-06 20:40] VITALS: BP 156/72; PULSE 80; RESP 14; O2SAT 98
== END 2023-03-06 20:40 | disposition home or self-care (01) ==
PROVIDERS: Emergency Provider Physician Assistant; PCP Family Medicine
DX: M54.12 Radiculopathy, cervical region (principal)
CPT/HCPCS: 96372; 99284; J1100

== ENCOUNTER 2023-05-07 00:09 | Emergency (ER) | payer MEDICARE, MEDICAID, SELFPAY ==
[2023-05-07 00:13] VITALS: BP 151/83; PULSE 62; RESP 18; TEMP 36.6; O2SAT 98
--- NOTE | 2023-05-07 00:22 | ED_ITS ---
HPI - Extremity Problem General: Chief complaint: Extremity Problem,Nontraumatic Stated complaint: left foot swollen Time Seen by Provider: 05/07/23 00:18 History of Present Illness: 48-year-old male patient comes in with r edness and tenderness to the MTP joint of the first digit on the left foot. Patient does have a history of gout. Patient also uses a walker to walk due to CP, patient appears nontoxic. Patient appears in no severe pain. Review of Systems General: Reports: 10 or more systems reviewed and unremarkable except in HPI and below Physical Exam Const: COMMON NORMALS: alert Neck/C-Spine: COMMON NORMALS: no meningeal signs Resp: COMMON NORMALS: normal respiratory effort Cardio: COMMON NORMALS: regular rate RATE: regular rate Back/Pelvis: COMMON NORMALS: thoracic and lumbar spine normal to inspection Extremity: LEFT LOWER EXTREMITY: Yes foot & digits (Redness first MTP joint with swelling) Neuro: SENSORIUM/ORIENTATION: Yes alert MENINGEAL SIGNS: Yes no meningeal signs Course Vital Signs: Vital signs: Vital Signs Temperature 98 F 05/07/23 00:13 Pulse Rate 62 05/07/23 00:13 Respiratory Rate 18 05/07/23 00:13 Blood Pressure 151/83 05/07/23 00:13 Pulse Oximetry 98 05/07/23 00:13 Oxygen Delivery Me thod Room Air 05/07/23 00:13 MDM - Extremity (Nontraumatic) Medical Decision Making 48-year-old male patient comes in today for complaints of pain to the left foot first MTP joint. On exam there is redness to the first joint. Positive pulses. Prompt cap refill. Differential diagnosis includes but not limited to gout, osteoarthritis, injury. Patient reports no injury. Patient has had prior gout flares. We will treat with a dose of steroids and NSAIDs. Patient reports understanding of care plan and need for follow-up or return to the ER. No radiology studies performed this visit Discharge Plan Discharge Patient Disposition: Home Clinical Impression: Gout Qualifiers: Gout site: foot Gout etiology: unspecified cause Chronicity: unspecified Laterality: left Qualified Code(s): M10.9 - Gout, unspecified Condition: Stable Prescriptions: Continued diclofenac sodium 75 mg tablet,delayed release (DR/EC) 75 mg PO Q12H PRN (Reason: pain) Qty: 20 0RF No Action (DME) articulating AFO See Rx Instructions .Route .MEDSUPPLY Qty: 1 0RF Rx Instructions: As directed to [facility] (DME) articulating AFO See Rx Instructions .Route .MEDSUPPLY Qty: 1 0RF Rx Instructions: As directed to [facility] atorvastatin 20 mg tablet 20 mg PO QAM ibuprofen 800 mg tablet 800 mg PO TID PRN (Reason: Pain) metoprolol succinate 100 mg tablet extended release 24 hr 100 mg PO QAM losartan-hydrochlorothiazide 100-25 mg tablet 1 tab PO QAM tamsulosin 0.4 mg capsule 4 mg PO QAM pantoprazole 40 mg tablet,delayed release (DR/EC) 40 mg PO QAM allopurinol 300 mg tablet 300 mg PO BID albuterol sulfate 90 mcg/actuation HFA aerosol inhaler 2 inh INHALATION Q4H PRN (Reason: Shortness Of Breath Or Wheezing) fluticasone propionate 50 mcg/actuation spray,suspension 2 spray INTRANASAL QAM metformin 750 mg tablet extended release 24 hr 750 mg PO QAM Multi-Vitamins Tablet 1 tab PO QAM garlic 1,000 mg Capsule 1,000 mg PO BID Super B Complex Tablet 1 tab PO DAILY Fish Oil 60-90-500 mg Capsule 1 cap PO DAILY Metamucil 3.4 gram/5.4 gram Powder 1 tbsp PO DAILY Rx Instructions: mix into at least 8 oz of water or juice before administering mupirocin 2 % ointment 1 applic topical DAILY Qty: 15 0RF methocarbamol 500 mg tablet 1,000 mg PO Q8H Qty: 30 0RF Medrol (Wan) 4 mg tablets,dose pack See Rx Instructions .ROUTE .COMPLEX Qty: 21 0RF Rx Instructions: orally per package directions Discharge Orders: Discharge ED (Routine); Ordered 05/07/23 Ordered By: Esau Collier Referrals: Ruth Puckett DO [Primary Care Provider] - Discharge Diet: Usual diet Discharge Activity: Increase activity as tolerated Patient Instructions: Gout (ED) Activity Restrictions/Additional Instructions: Home and rest. Drink plenty of water with medications. Follow-up with primary care in 1 week for recheck. Return to ED for new concerns or worsening symptoms such as fever greater than 100.4, inability to hold down fluids, or new concerns. Coding Level of Care Code ED Measurement Department Chief Clerk for Guilherme Barnes
[2023-05-07] MEDS: dexamethasone 10 mg/mL INJ IM (00:30)
[2023-05-07] MEDS: ketorolac 30 mg/mL INJ IM (00:30)
== END 2023-05-07 00:53 | disposition home or self-care (01) ==
PROVIDERS: Emergency Provider Nurse Practitioner Family; PCP Family Medicine
DX: M10.9 Gout, unspecified (principal); Z79.84 Long term (current) use of oral hypoglycemic drugs
CPT/HCPCS: 96372; 99284; J1100; J1885

== ENCOUNTER 2023-07-03 13:14 | Emergency (ER) | payer MEDICARE, MEDICAID, SELFPAY ==
[2023-07-03 13:20] VITALS: BP 168/81; PULSE 68; RESP 16; TEMP 36.8; O2SAT 100; BMI 32.9
--- NOTE | 2023-07-03 13:43 | XRR_ITS ---
PROCEDURE INFORMATION: Exam: XR Chest Exam date and time: 07/03/2023 2:22 PM Age: 48 years old Clinical indication: Other: Fluid retention on the legs; Additional info: Le swelling TECHNIQUE: Imaging protocol: Radiologic exam of the chest. Views: 1 view. COMPARISON: CR XR chest 1V portable [id number] 12/29/2022 10:19 AM FINDINGS: Lungs: Unremarkable. No consolidation or mass. Pleural spaces: Unremarkable. No pleural effusion. No pneumothorax. Heart/Mediastinum: Unremarkable. No cardiomegaly. Bones/joints: Unremarkable. XR/XR chest 1V portable [id number] IMPRESSION: No acute findings.
--- NOTE | 2023-07-03 13:44 | W.ED.EXTPRO ---
HPI - Extremity Problem General: Chief complaint: Extremity Problem,Nontraumatic Stated complaint: Both Legs swollen Time Seen by Provider: 07/03/23 13:30 Source: patient Mode of arrival: ambulatory Limitations: no limitations History of Present Illness: Patient is a 48-year-old male who presents to the ED today with a complaint of bilateral lower extremity swelling that he has noticed over the past 2 to 3 days. Patient states he does take losartan/HCTZ for blood pressure. He has no previous history of lower extremity swelling. He denies shortness of breath, difficulty breathing, or chest pain. He has not noticed any redness or warmth to the legs. No color/temperature changes. He is not complaining of numbness, tingling, loss of sensation. No calf pain. Denies history of CHF. He states the legs are not hurting him nor do they feel tired or achy. MD Complaint: extremity swelling Onset (ago): day(s) Location: left, right and lower extremity Radiation: none Relieving factors: nothing Exacerbating factors: nothing Associated symptoms: Reports no associated symptoms; Deny chest pain, fever(s) or rash Review of Systems Const: Denies: fever(s), chills, body aches, fatigue or malaise Card: Reports: edema (bilateral LEs) and swelling of feet/ankles; Denies: chest pain, palpitations, irregular heart rhythm, lightheadedness, syncope, pre-syncope, dyspnea on exertion, orthopnea, leg pain with exertion or acrocyanosis Resp: Denies: dyspnea, pain on inspiration, hemoptysis or chest congestion GI: Denies: abdominal pain : Denies: oliguria Musc: Reports: extremity swelling; Denies: neck pain, back pain, extremity pain, joint pain, joint swelling, joint redness, joint warmth, joint stiffness, limited range of motion, muscle cramps or muscle weakness Skin/Breast: Denies: rash Neuro: Denies: numbness in extremities, weakness in extremities, sensory changes or difficulty walking Physical Exam Const: COMMON NORMALS: no acute distress, average body habitus, patient oriented x3, no limitations, healthy appearing, alert and well nourished GENERAL APPEARANCE: cooperative ORIENTATION/CONSCIOUSNESS: Yes awake, Yes oriented to person, Yes oriented to place and Yes oriented to time Neck/C-Spine: COMMON NORMALS: no JVD Resp: COMMON NORMALS: normal respiratory effort and clear to auscultation bilaterally AUSCULTATION: clear to auscultation bilaterally Cardio: COMMON NORMALS: no JVD, regular rate and regular rhythm RATE: regular rate RHYTHM: regular rhythm GI: COMMON NORMALS: Soft to palpation INSPECTION: No abdominal distension PALPATION: Yes Soft to palpation : COMMON NORMALS: Yes no CVA tenderness BLADDER/KIDNEY EXAM: Yes no CVA tenderness Back/Pelvis: COMMON NORMALS: no CVA tenderness Extremity: COMMON NORMALS: full ROM, capillary refill normal, no joint enlargement and no calf tenderness NARRATIVE EXTREMITY EXAM: mild bilateral symmetrical non-pitting edema; otherwise normal bilateral LE examination GENERAL: Yes normal exam except as noted Neuro: COMMON NORMALS: patient oriented x3, moves all extremities, no focal motor deficits, no sensory deficits noted and gait normal SENSORIUM/ORIENTATION: Yes alert, Yes oriented to person, Yes oriented to place and Yes oriented to time Skin: COMMON NORMALS: no rashes or lesions noted GENERAL SKIN EXAM: no rashes or lesions noted Course Vital Signs: Vital signs: Vital Signs Temperature 98.2 F 07/03/23 13:20 Pulse Rate 78 07/03/23 14:22 Respiratory Rate 17 07/03/23 14:22 Blood Pressure 135/65 07/03/23 14:22 Pulse Oximetry 99 07/03/23 14:22 Oxygen Delivery Me thod Room Air 07/03/23 14:22 MDM - Extremity (Nontraumatic) Medical Decision Making Patient here for symmetrical bilateral lower extremity edema. Vital signs are stable. Blood work including BNP overall looks okay. He is mildly hypokalemic with a potassium of 3.3. He was given oral supplementation for this. CXR does not show any evidence of fluid overload. Recommend compression stockings and elevating extremities. He may follow-up with primary care in 1 to 2 weeks for further evaluation/treatment. Return ED precautions given. Differential Diagnosis Likely lower extremity edema Lab Data 07/03/23 13:59 07/03/23 13:59 Laboratory Results WBC 7.82 10^3/uL (3.29-11.43) 07/03/23 13:59 RBC 5.30 10^6/uL (3.85-5.65) 07/03/23 13:59 Hgb 11.50 g/dL (11.27-16.99) 07/03/23 13:59 Hct 38.5 % (37-53) 07/03/23 13:59 MCV 72.6 fl (82-101) L 07/03/23 13:59 MCH 21.7 pg (27-33) L 07/03/23 13:59 MCHC 29.9 g/dL (30-55) L 07/03/23 13:59 RDW 16.6 % (12.1-15.1) H 07/03/23 13:59 Plt Count 273 10^3/cmm (157-399) 07/03/23 13:59 MPV 11.5 fL (7.4-10.4) H 07/03/23 13:59 Neut % (Auto) 53.2 % 07/03/23 13:59 Lymph % (Auto) 31.1 % 07/03/23 13:59 [place] % (Auto) 7.8 % 07/03/23 13:59 Eos % (Auto) 7.0 % 07/03/23 13:59 Baso % (Auto) 0.5 % 07/03/23 13:59 Neut # (Auto) 4.16 10^3/uL (1.8-7.7) 07/03/23 13:59 Lymph # (Auto) 2.4 10^3/uL (0.8-4.8) 07/03/23 13:59 [place] # (Auto) 0.6 10^3/uL (0.2-0.9) 07/03/23 13:59 Eos # (Auto) 0.6 10^3/uL (0.0-0.8) 07/03/23 13:59 Baso # (Auto) 0.0 10^3/uL (0.0-0.1) 07/03/23 13:59 Nucleated RBC % (auto) 0 % 07/03/23 13:59 Nucleated RBCs # 0.0 /100WBC 07/03/23 13:59 Sodium 142 mmol/L (136-145) 07/03/23 13:59 Potassium 3.3 mmol/L (3.5-5.1) L 07/03/23 13:59 Chloride 106 mmol/L (98-107) 07/03/23 13:59 Carbon Dioxide 22 mmol/L (22-29) 07/03/23 13:59 Anion Gap 17.3 (5-19) 07/03/23 13:59 BUN 12 mg/dL (6-20) 07/03/23 13:59 Creatinine 0.7 mg/dL (0.7-1.2) 07/03/23 13:59 GFR Calculation 121.4 mL/min (90-130) 07/03/23 13:59 Glucose 107 mg/dL (65-115) 07/03/23 13:59 Calculated Osmolality 294 mOsm/kg (285-295) 07/03/23 13:59 Calcium 9.2 mg/dL (8.5-10.5) 07/03/23 13:59 Total Bilirubin 0.7 mg/dL (0.15-1.2) 07/03/23 13:59 AST 23 U/L (0-40) 07/03/23 13:59 ALT 31 U/L (0-41) 07/03/23 13:59 Alkaline Phosphatase 68 U/L (40-130) 07/03/23 13:59 NT-Pro-B Natriuret Pep 46 pg/mL (0-125) 07/03/23 13:59 Total Protein 7.1 g/dL (6.6-8.7) 07/03/23 13:59 Albumin 4.3 g/dL (3.5-5.2) 07/03/23 13:59 Globulin 2.8 g/dL (1.3-4.6) 07/03/23 13:59 XR interpretation done by ED provider, pending radiology final review Discharge Plan Discharge Patient Disposition: Home Clinical Impression: Bilateral edema of lower extremity Condition: Stable Prescriptions: No Action (DME) articulating AFO See Rx Instructions .Route .MEDSUPPLY Qty: 1 0RF Rx Instructions: As directed to [facility] (DME) articulating AFO See Rx Instructions .Route .MEDSUPPLY Qty: 1 0RF Rx Instructions: As directed to [facility] atorvastatin 20 mg tablet 20 mg PO QAM ibuprofen 800 mg tablet 800 mg PO TID PRN (Reason: Pain) metoprolol succinate 100 mg tablet extended release 24 hr 100 mg PO QAM losartan-hydrochlorothiazide 100-25 mg tablet 1 tab PO QAM tamsulosin 0.4 mg capsule 4 mg PO QAM pantoprazole 40 mg tablet,delayed release (DR/EC) 40 mg PO QAM allopurinol 300 mg tablet 300 mg PO BID albuterol sulfate 90 mcg/actuation HFA aerosol inhaler 2 inh INHALATION Q4H PRN (Reason: Shortness Of Breath Or Wheezing) fluticasone propionate 50 mcg/actuation spray,suspension 2 spray INTRANASAL QAM metformin 750 mg tablet extended release 24 hr 750 mg PO QAM multivitamin [Multi-Vitamins] Tablet 1 tab PO QAM garlic 1,000 mg Capsule 1,000 mg PO BID vitamin B complex [Super B Complex] Tablet 1 tab PO DAILY omega 6-shc-ugu-fish oil [Fish Oil] 60-90-500 mg Capsule 1 cap PO DAILY Metamucil 3.4 gram/5.4 gram Powder 1 tbsp PO DAILY Rx Instructions: mix into at least 8 oz of water or juice before administering aspirin 325 mg Tablet 325 mg PO DAILY Discharge Orders: Discharge ED (Routine); Ordered 07/03/23 Ordered By: Indira Chatterjee Referrals: Ruth Puckett DO [Primary Care Provider] - Patient Instructions: Edema (ED) Activity Restrictions/Additional Instructions: As we discussed I would like you to begin wearing compression stockings as well as elevating your extremities is much as possible. Please follow-up with your primary care provider in the next 1 to 2 weeks for further evaluation/treatment. Coding Level of Care Code ED Public Safety Telecommunicator for Guilherme Barnes
[2023-07-03 14:08] LABS: Basophils % 0.5 %; Eosinophils # 0.6 10^3/uL (0.0-0.8); Hematocrit 38.5 % (37-53); Lymphocytes # 2.4 10^3/uL (0.8-4.8); Lymphocytes % 31.1 %; Mean Corpuscular HGB Conc 29.9 g/dL (30-55); Mean Corpuscular Hemoglobin 21.7 pg (27-33); Mean Corpuscular Volume 72.6 fl (82-101); Mean Platelet Volume 11.5 fL (7.4-10.4); Monocytes # 0.6 10^3/uL (0.2-0.9); Monocytes % 7.8 %; Neutrophils # 4.16 10^3/uL (1.8-7.7); Neutrophils % 53.2 %; Nucleated Red Blood Cells % 0 %; Platelet Count 273 10^3/cmm (157-399); Red Cell Distribution Width 16.6 % (12.1-15.1); White Blood Count 7.82 10^3/uL (3.29-11.43)
[2023-07-03 14:22] VITALS: BP 135/65; PULSE 78; RESP 17; O2SAT 99
[2023-07-03 14:30] VITALS: BP 135/65; PULSE 65; RESP 16; O2SAT 96
[2023-07-03 14:36] LABS: Alanine Aminotransferase 31 U/L (0-41); Albumin Level 4.3 g/dL (3.5-5.2); Alkaline Phosphatase 68 U/L (40-130); Anion Gap 17.3 (5-19); Aspartate Amino Transferase 23 U/L (0-40); Blood Urea Nitrogen 12 mg/dL (6-20); Calcium 9.2 mg/dL (8.5-10.5); Carbon Dioxide 22 mmol/L (22-29); Chloride 106 mmol/L (98-107); Creatinine Clr Calc Pharmacy 154.5785; Globulin 2.8 g/dL (1.3-4.6); Glomerular Filtration Rate 121.4 mL/min (90-130); Glucose 107 mg/dL (65-115); NT Pro B Type Natriuretic Pept 46 pg/mL (0-125); Osmolality Calculated 294 mOsm/kg (285-295); Potassium 3.3 mmol/L (3.5-5.1); Sodium 142 mmol/L (136-145); Total Bilirubin 0.7 mg/dL (0.15-1.2); Total Protein 7.1 g/dL (6.6-8.7)
[2023-07-03] MEDS: FUROsemide 10 mg/mL SDV 4mL 40 MG IM (14:55)
[2023-07-03] MEDS: potassium chloride ER 20 mEq Tablet 40 MEQ PO (14:55)
[2023-07-03 15:00] VITALS: PULSE 72; RESP 16; O2SAT 97
== END 2023-07-03 15:07 | disposition home or self-care (01) ==
PROVIDERS: Emergency Provider Physician Assistant; PCP Family Medicine
DX: R60.0 Localized edema (principal); Z79.82 Long term (current) use of aspirin; Z79.84 Long term (current) use of oral hypoglycemic drugs
CPT/HCPCS: 71045; 80053; 83880; 85025; 99284; J1940

== ENCOUNTER 2024-08-16 12:22 | Emergency (ER) | payer MEDICARE, MEDICAID, SELFPAY ==
[2024-08-16 12:24] VITALS: BP 142/73; PULSE 85; RESP 16; TEMP 36.5; O2SAT 99; BMI 35.4
--- NOTE | 2024-08-16 12:25 | XRR_ITS ---
PROCEDURE INFORMATION: Exam: XR Chest Exam date and time: 08/16/2024 12:26 PM Age: 49 years old Clinical indication: Cough and dyspnea; Additional info: Dyspnea/cough TECHNIQUE: Imaging protocol: Radiologic exam of the chest. Views: 1 view. COMPARISON: CR XR chest 1V portable [id number] 07/03/2023 2:22 PM FINDINGS: Lungs: New low lung volumes. Unchanged calcified granuloma left upper lung. Otherwise, unremarkable. Pleural spaces: Unremarkable. No pleural effusion. No pneumothorax. Heart/Mediastinum: Unremarkable. No cardiomegaly. Bones/joints: Unremarkable. XR/XR chest 1V portable [id number] IMPRESSION: 1. New low lung volumes. 2. No other acute findings.
[2024-08-16 12:36] LABS: ABG PCO2 33.1 mmHg (35-45); ABG PH Result 7.37 (7.35-7.45); Alveolar-Arterial Oxygen Gradi 3.5 mmHg (5-10); Arterial Blood Gas Hematocrit 50.5 % (42-52); Blood Gas Allen Test Pos; Blood Gas Operator Identificat WALCI; Blood Gas Sample Site Radial, right; Blood Gas Sample Type Arterial; Carboxyhemoglobin < 0.3 %THgb (0.4-20.1); HCO3 ABG 19.2 mmol/L (22-26); HGB O2 Sat 94.4 % (95-100); Ionized Calcium Level - ABG 1.3 mmol/L (1.1-1.4); Methemoglobin 0.8 % (0.4-1.5); Oxygen Device ROOM AIR; Oxygen Saturation ABG 95.3; PO2 ABG 80.2 mmHg (80.0-100.0); PO2 FiO2 Ratio Arterial Blood 381; Potassium Level - ABG 3.6 mmol/L (3.5-5.0); Total Hemoglobin 16.5 g/dL (14-18)
[2024-08-16 12:38] LABS: Basophils % 0.2 %; Eosinophils % 0.1 %; Lymphocytes # 2.8 10^3/uL (0.8-4.8); Mean Corpuscular HGB Conc 33.1 g/dL (30-55); Mean Corpuscular Hemoglobin 27.9 pg (27-33); Mean Corpuscular Volume 84.2 fl (82-101); Mean Platelet Volume 12.9 fL (7.4-10.4); Monocytes % 5.9 %; Neutrophils # 12.58 10^3/uL (1.8-7.7); Neutrophils % 76.1 %; Nucleated Red Blood Cells % 0 %; Platelet Count 228 10^3/cmm (157-399); Red Cell Distribution Width 14.5 % (12.1-15.1); White Blood Count 16.54 10^3/uL (3.29-11.43)
--- NOTE | 2024-08-16 12:38 | ECG_ITS ---
[facility] Test Date: 2024-08-16 Pat Name: Billy Eubanks Department: Room: Gender: Male Post Closer: : 1975 Requested By: Medhat Green Order Number: [id number] Rito MD: Nolan Spencer M.D. Measurements Intervals [place] Rate: 69 P: 29 NC: 196 QRS: 39 QRSD: 106 T: 16 QT: 375 QTc: 404 Interpretive Statements SINUS RHYTHM Compared to ECG 10/08/2022 01:01:24 No significant changes Electronically Signed On 08-17-2024 18:08:40 CDT by Nolan Spencer M.D. [email or web address]
--- NOTE | 2024-08-16 12:48 | W.ED.AMS ---
HPI - Altered Mental Status General: Chief Complaint: Altered Mental Status Stated Complaint: AMS Time Seen by Provider: 08/16/24 12:23 History of Present Illness: 49-year-old male presents emergency room with complaints of confusion per at home health nurse. On arrival here he is awake and alert provides good history, He denies any pain or discomfort. no recent injury or illness. Related Data Home Medications ?Medication ?Instructions ?Recorded ?Confirmed albuterol sulfate 90 mcg/actuation 2 inh inhalation Q4H PRN Shortness 12/29/22 08/16/24 aerosol inhaler Of Breath Or Wheezing allopurinol 300 mg tablet 300 mg PO BID 12/29/22 08/16/24 atorvastatin 20 mg tablet 20 mg PO QAM 12/29/22 08/16/24 fluticasone propionate 50 2 spray intranasal QAM 12/29/22 08/16/24 mcg/actuation nasal spray,suspension garlic 1,000 mg capsule 1,000 mg PO BID 12/29/22 08/16/24 ibuprofen 800 mg tablet 800 mg PO TID PRN Pain 12/29/22 08/16/24 losartan 100 1 tab PO QAM 12/29/22 08/16/24 mg-hydrochlorothiazide 25 mg tablet metformin 750 mg tablet,extended 750 mg PO QAM 12/29/22 08/16/24 release 24 hr metoprolol succinate 100 mg 100 mg PO QAM 12/29/22 08/16/24 tablet,extended release 24 hr multivitamin 1 tab PO QAM 12/29/22 08/16/24 omega 4-fxw-cmb-fish oil 60 mg-90 1 cap PO DAILY 12/29/22 08/16/24 mg-500 mg capsule (Fish Oil) pantoprazole 40 mg tablet,delayed 40 mg PO QAM 12/29/22 08/16/24 release psyllium husk 3.4 gram/5.4 gram 1 tbsp PO DAILY 12/29/22 08/16/24 oral powder (Metamucil) tamsulosin 0.4 mg capsule 4 mg PO QAM 12/29/22 08/16/24 vitamin B complex 1 tab PO DAILY 12/29/22 08/16/24 aspirin 325 mg tablet 325 mg PO DAILY 07/03/23 08/16/24 fluticasone fur. 100 mcg-umeclid 1 inh inhalation DAILY 08/16/24 08/16/24 62.5 mcg-vilant 25 mcg inhalat.powder (Trelegy Ellipta) furosemide 20 mg tablet 20 mg PO DAILY 08/16/24 08/16/24 potassium chloride 10 mEq 10 meq PO QAM 08/16/24 08/16/24 tablet,extended release topiramate 100 mg tablet 100 mg PO BID 08/16/24 08/16/24 valacyclovir 1 gram tablet 1,000 mg PO BID PRN Cold Sores 08/16/24 08/16/24 Previous Rx's ?Medication ?Instructions ?Recorded articulating AFO #1 ea 11/18/22 articulating AFO #1 ea 01/26/23 Allergies Allergy/AdvReac Type Severity Reaction Status Date / Time No Known Allergies Allergy Verified 07/03/23 14:20 Review of Systems Const: Denies: fever(s) or chills Card: Reports: edema (lower extremities); Denies: chest pain Resp: Denies: dyspnea GI: Denies: abdominal pain : Denies: dysuria, urinary frequency or urinary urgency Musc: Denies: neck pain or back pain Skin/Breast: Denies: rash PFSH ED PFSH: Medical History (Updated 08/23/24 @ 13:35 by Medhat Joseph DO) Neuropathy Surgical History (Updated 08/23/24 @ 13:35 by Medhat Joseph DO) H/O foot surgery Physical Exam Const: COMMON NORMALS: no acute distress GENERAL APPEARANCE: cooperative ORIENTATION/CONSCIOUSNESS: Yes awake, Yes oriented to person, Yes oriented to place and Yes oriented to time HENMT: COMMON NORMALS: normocephalic, atraumatic and hearing grossly normal bilaterally HEAD & SCALP: normocephalic and atraumatic Resp: COMMON NORMALS: normal respiratory effort, No retractions, No use of accessory muscles and clear to auscultation bilaterally AUSCULTATION: clear to auscultation bilaterally Cardio: COMMON NORMALS: regular rate, regular rhythm and No murmurs present (Cardio) RATE: regular rate RHYTHM: regular rhythm GI: COMMON NORMALS: Soft to palpation and No hepatosplenomegaly present AUSCULTATION: Yes normoactive bowel sounds PALPATION: Yes Soft to palpation, No Tenderness to palpation present (GI), No Guarding due to palpation present (GI) and Yes No hepatosplenomegaly present Extremity: COMMON NORMALS: normal to inspection, capillary refill normal, no clubbing, cyanosis or edema, no calf tenderness and no pedal edema Neuro: SENSORIUM/ORIENTATION: Yes oriented to person, Yes oriented to place and Yes oriented to time Skin: COMMON NORMALS: no rashes or lesions noted GENERAL SKIN EXAM: no rashes or lesions noted Course Vital Signs: Vital signs: Vital Signs Temperature 97.7 F 08/16/24 12:24 Pulse Rate 94 08/16/24 16:33 Respiratory Rate 16 08/16/24 12:24 Blood Pressure 135/75 08/16/24 16:33 Pulse Oximetry 95 08/16/24 16:33 Oxygen Delivery Me thod Room Air 08/16/24 12:24 MDM - Altered Mental Status Medical Decision Making Pt has not developed any further symptoms at this point. WBC elevated but no defintive findings. Urine turbid. CT abd palvis negative. ABG unremarkable, tox screens neg. PT prefers to be discharges. Medical Records I reviewed the patient's medical records. Lab Data I reviewed the patient's lab results. 08/16/24 12:28 08/16/24 12:28 Radiology Impressions Chest X-Ray 08/16/24 12:25 IMPRESSION: 1. New low lung volumes. 2. No other acute findings. Abdomen/Pelvis CT 08/16/24 14:04 IMPRESSION: No acute findings in the abdomen or pelvis Laboratory Results WBC 16.54 10^3/uL (3.29-11.43) H 08/16/24 12:28 RBC 5.70 10^6/uL (3.85-5.65) H 08/16/24 12:28 Hgb 15.90 g/dL (11.27-16.99) 08/16/24 12:28 Hct 48.0 % (37-53) 08/16/24 12:28 MCV 84.2 fl (82-101) 08/16/24 12:28 MCH 27.9 pg (27-33) 08/16/24 12:28 MCHC 33.1 g/dL (30-55) 08/16/24 12:28 RDW 14.5 % (12.1-15.1) 08/16/24 12:28 Plt Count 228 10^3/cmm (157-399) 08/16/24 12: MPV 12.9 fL (7.4-10.4) H 08/16/24 12: Neut % (Auto) 76.1 % 08/16/24 12: Lymph % (Auto) 17.0 % 08/16/24 12: [place] % (Auto) 5.9 % 08/16/24 12: Eos % (Auto) 0.1 % 08/16/24 12: Baso % (Auto) 0.2 % 08/16/24 12:28 Neut # (Auto) 12.58 10^3/uL (1.8-7.7) H 08/16/24 12: Lymph # (Auto) 2.8 10^3/uL (0.8-4.8) 08/16/24 12: [place] # (Auto) 1.0 10^3/uL (0.2-0.9) H 08/16/24 12: Eos # (Auto) 0.0 10^3/uL (0.0-0.8) 08/16/24 12: Baso # (Auto) 0.0 10^3/uL (0.0-0.1) 08/16/24 12: Nucleated RBC % (auto) 0 % 08/16/24 12: Nucleated RBCs # 0.0 /100WBC 08/16/24 12:28 Specimen Type Arterial 08/16/24 12:25 Sample Site Radial, right 08/16/24 12:25 ABG pH 7.37 (7.35-7.45) 08/16/24 12:25 ABG pCO2 33.1 mmHg (35-45) L 08/16/24 12:25 ABG pO2 80.2 mmHg (80.0-100.0) 08/16/24 12:25 ABG PO2/FiO2 Ratio 381 08/16/24 12:25 ABG HCO3 19.2 mmol/L (22-26) L 08/16/24 12:25 ABG O2 Saturation 95.3 08/16/24 12:25 ABG Base Excess -5.0 mmol/L (-2.0-2.0) L 08/16/24 12:25 [place] Test Pos 08/16/24 12:25 A-a O2 Gradient 3.5 mmHg (5-10) L 08/16/24 12:25 Hematocrit 50.5 % (42-52) 08/16/24 12:25 Hgb O2 Saturation 94.4 % (95-100) L 08/16/24 12:25 Carboxyhemoglobin < 0.3 %THgb (0.4-20.1) L 08/16/24 12:25 Methemoglobin 0.8 % (0.4-1.5) 08/16/24 12:25 Total Hemoglobin 16.5 g/dL (14-18) 08/16/24 12:25 Sodium 139.0 mmol/L (131-143) 08/16/24 12:25 Potassium 3.6 mmol/L (3.5-5.0) 08/16/24 12:25 Glucose 96.0 mg/dL (70-115) 08/16/24 12:25 Ionized Calcium 1.3 mmol/L (1.1-1.4) 08/16/24 12:25 O2 Delivery Device Room air 08/16/24 12:25 FiO2 21.0 % 08/16/24 12:25 Truck Dock Material Mover ID [place] 08/16/24 12:25 Sodium 136 mmol/L (136-145) 08/16/24 12:28 Potassium 4.0 mmol/L (3.5-5.1) 08/16/24 12:28 Chloride 100 mmol/L (98-107) 08/16/24 12:28 Carbon Dioxide 19 mmol/L (22-29) L 08/16/24 12:28 Anion Gap 21.0 (5-19) H 08/16/24 12:28 BUN 12 mg/dL (6-20) 08/16/24 12:28 Creatinine 0.6 mg/dL (0.7-1.2) L 08/16/24 12:28 GFR Calculation 144.4 mL/min (90-130) H 08/16/24 12:28 Glucose 80 mg/dL (65-115) 08/16/24 12:28 Calculated Osmolality 281 mOsm/kg (285-295) L 08/16/24 12:28 Calcium 10.0 mg/dL (8.5-10.5) 08/16/24 12:28 Total Bilirubin 0.7 mg/dL (0.15-1.2) 08/16/24 12:28 AST 25 U/L (0-40) 08/16/24 12:28 ALT 48 U/L (0-41) H 08/16/24 12:28 Alkaline Phosphatase 83 U/L (40-130) 08/16/24 12:28 Total Protein 7.8 g/dL (6.6-8.7) 08/16/24 12:28 Albumin 4.6 g/dL (3.5-5.2) 08/16/24 12:28 Globulin 3.2 g/dL (1.3-4.6) 08/16/24 12:28 Urine Color Yellow (Yellow) 08/16/24 13:15 Urine Appearance Turbid (CLEAR) A 08/16/24 13:15 Urine pH 8.5 (5-7) A 08/16/24 13:15 Ur Specific [place] 1.016 (1.005-1.030) 08/16/24 13:15 Urine Protein Negative (Negative) 08/16/24 13:15 Urine Glucose (UA) Negative (Normal) 08/16/24 13:15 Urine Ketones Negative (Negative) 08/16/24 13:15 Urine Blood Negative (Negative) 08/16/24 13:15 Urine Nitrate Negative (Negative) 08/16/24 13:15 Urine Bilirubin Negative (Negative) 08/16/24 13:15 Urine Urobilinogen 1.0 mg/dL (Negative) 08/16/24 13:15 Ur Leukocyte Esterase Negative (Negative) 08/16/24 13:15 Urine RBC 0-2 /hpf (0-2) 08/16/24 13:15 Urine WBC 0-5 /hpf (0-5) 08/16/24 13:15 Ur Squamous Epith Cells 0-5 /hpf (0-5) 08/16/24 13:15 Uric Acid Crystals N /hpf 08/16/24 13:15 Amorphous Sediment Not Reportable 08/16/24 13:15 Urine Bacteria None seen /hpf (NONE) 08/16/24 13:15 Hyaline Casts 0-4 /lpf H 08/16/24 13:15 Urine Opiates Screen Negative ng/mL (Negative) 08/16/24 13:15 Ur Barbiturates Screen Negative ng/mL (Negative) 08/16/24 13:15 Ur Phencyclidine Scrn Negative ng/mL (Negative) 08/16/24 13:15 Ur Amphetamines Screen Negative ng/mL (Negative) 08/16/24 13:15 U Benzodiazepines Scrn Negative ng/mL (Negative) 08/16/24 13:15 Urine Cocaine Screen Negative ng/mL (Negative) 08/16/24 13:15 U Marijuana (THC) Screen Negative ng/mL (Negative) 08/16/24 13:15 Ethyl Alcohol < 10 mg/dL (0-10) 08/16/24 12:28 All radiology interpretation(s) finalized by discharge Discharge Plan Discharge Patient Disposition: Home Clinical Impression: Confusion Condition: Stable Prescriptions: No Action (DME) articulating AFO See Rx Instructions .Route .MEDSUPPLY Qty: 1 0RF Rx Instructions: As directed to [facility] (DME) articulating AFO See Rx Instructions .Route .MEDSUPPLY Qty: 1 0RF Rx Instructions: As directed to [facility] atorvastatin 20 mg tablet 20 mg PO QAM ibuprofen 800 mg tablet 800 mg PO TID PRN (Reason: Pain) metoprolol succinate 100 mg tablet extended release 24 hr 100 mg PO QAM losartan-hydrochlorothiazide 100-25 mg tablet 1 tab PO QAM tamsulosin 0.4 mg capsule 4 mg PO QAM pantoprazole 40 mg tablet,delayed release (DR/EC) 40 mg PO QAM allopurinol 300 mg tablet 300 mg PO BID albuterol sulfate 90 mcg/actuation HFA aerosol inhaler 2 inh INHALATION Q4H PRN (Reason: Shortness Of Breath Or Wheezing) fluticasone propionate 50 mcg/actuation spray,suspension 2 spray INTRANASAL QAM metformin 750 mg tablet extended release 24 hr 750 mg PO QAM multivitamin [Multi-Vitamins] Tablet 1 tab PO QAM garlic 1,000 mg Capsule 1,000 mg PO BID vitamin B complex [Super B Complex] Tablet 1 tab PO DAILY omega 6-cbq-bji-fish oil [Fish Oil] 60-90-500 mg Capsule 1 cap PO DAILY Metamucil 3.4 gram/5.4 gram Powder 1 tbsp PO DAILY Rx Instructions: mix into at least 8 oz of water or juice before administering aspirin 325 mg Tablet 325 mg PO DAILY valacyclovir 1 gram tablet 1,000 mg PO BID PRN (Reason: Cold Sores) potassium chloride 10 mEq tablet extended release 10 meq PO QAM furosemide 20 mg tablet 20 mg PO DAILY topiramate 100 mg tablet 100 mg PO BID Trelegy Ellipta 100-62.5-25 mcg blister with device 1 inh INHALATION DAILY Discharge Orders: Discharge ED (Routine); Ordered 08/16/24 Ordered By: Medhat Joseph Referrals: Ruth Puckett, DO [Primary Care Provider, Family Practice] Discharge Diet: Usual diet Discharge Activity: Resume usual activity Patient Instructions: Opioid Safety, Pain Management Activity Restrictions/Additional Instructions: Thank you for choosing [facility] for your healthcare needs today. It is very important that you follow up as instructed or that you return to the Emergency Department should you have concerns or if your condition changes or worsens in any way. Follow-up with your doctor within the next week. Print Language: Faroese Coding Level of Care Code ED Fuel Attendant for Guilherme Barnes
[2024-08-16 13:28] VITALS: BP 112/60; PULSE 66; O2SAT 98
[2024-08-16 13:31] LABS: Bilirubin Urine Negative (Negative); Blood Urine Negative (Negative); Glucose Urine UA Negative (Normal); Ketones Urine Negative (Negative); Leukocyte Esterase Urine Negative (Negative); Nitrate Urine Negative (Negative); Protein Urine Negative (Negative); Specific Gravity, Urine 1.016 (1.005-1.030); Urine Appearance Turbid (CLEAR); Urine Color Yellow (Yellow); pH Urine 8.5 (5-7)
[2024-08-16 13:35] LABS: Add Urine Microscopic? YES; Bacteria Urine None Seen /hpf; Hyaline Casts Urine 0-4 /lpf; RBC Urine 0-2 /hpf (0-2); Squamous Epithelial Cell Urine 0-5 /hpf (0-5); WBC Urine 0-5 /hpf (0-5)
[2024-08-16 13:38] LABS: Amphetamines Screen Urine Negative (Negative); Barbiturates Screen Urine Negative (Negative); Benzodiazepines Screen Urine Negative (Negative); Cocaine Screen Urine Negative (Negative); Opiate Screen Urine Negative (Negative); PCP Screen Urine Negative (Negative); THC Screen Urine Negative (Negative)
[2024-08-16 13:39] LABS: Uric Acid Crystals Urine N /hpf
[2024-08-16 13:53] LABS: Alanine Aminotransferase 48 U/L (0-41); Albumin Level 4.6 g/dL (3.5-5.2); Alcohol Level < 10 mg/dL (0-10); Alkaline Phosphatase 83 U/L (40-130); Aspartate Amino Transferase 25 U/L (0-40); Blood Urea Nitrogen 12 mg/dL (6-20); Carbon Dioxide 19 mmol/L (22-29); Chloride 100 mmol/L (98-107); Creatinine Clr Calc Pharmacy 185.0631; Globulin 3.2 g/dL (1.3-4.6); Glomerular Filtration Rate 144.4 mL/min (90-130); Glucose 80 mg/dL (65-115); Osmolality Calculated 281 mOsm/kg (285-295); Sodium 136 mmol/L (136-145); Total Bilirubin 0.7 mg/dL (0.15-1.2); Total Protein 7.8 g/dL (6.6-8.7)
--- NOTE | 2024-08-16 14:04 | CT_ITS ---
WS: [id number] CT ABDOMEN PELVIS TECHNIQUE: Contrast-enhanced CT of the abdomen and pelvis with coronal and sagittal reformatted images. CLINICAL INFORMATION: abd pain COMPARISON: 2022 DLP: 936.[address] scans at [facility] use at least one of these dose optimization techniques: automated exposure control; mA and/or kV adjustment per patient size (includes targeted exams where dose is matched to clinical indication); or iterative reconstruction. FINDINGS: Slight bibasilar atelectasis. Fatty liver. Cholecystectomy. Normal portal vein and splenic vein. Normal pancreatic parenchymal enhancement. Splenic granulomas. Portal vein and splenic vein are patent. Normal adrenal glands. Normal GE junction. Normal caliber abdominal aorta. No hydronephrosis in either kidney. Normal renal parenchymal enhancement. Tiny fat-containing umbilical hernia. Normal appendix. CT/CT abdomen pelvis w con* [id number] IMPRESSION: No acute findings in the abdomen or pelvis
[2024-08-16] MEDS: iohexol 350 mg/mL 500 mL Btl (per mL) IV (14:36)
[2024-08-16 15:00] VITALS: PULSE 85; O2SAT 97
[2024-08-16 15:30] VITALS: BP 138/75; PULSE 78; O2SAT 95
[2024-08-16 16:33] VITALS: BP 135/75; PULSE 94; O2SAT 95
== END 2024-08-16 16:35 | disposition home or self-care (01) ==
PROVIDERS: Emergency Provider Family Medicine; PCP Family Medicine
DX: R41.0 Disorientation, unspecified (principal); Z79.82 Long term (current) use of aspirin; Z79.84 Long term (current) use of oral hypoglycemic drugs
CPT/HCPCS: 36415; 71045; 74177; 80051; 80053; 80306; 80307; 81001; 82330; 82805; 85025; 93005; 99285

== ENCOUNTER 2024-09-14 12:03 | Outpatient (CLI) | payer MEDICARE, MEDICAID, SELFPAY | END 2024-09-14 12:04 | disposition home or self-care (01) | LOC: RT 12:06 | PROVIDERS: PCP Family Medicine; Visit Provider Family Medicine | DX: J44.9 Chronic obstructive pulmonary disease, unspecified (principal) | CPT/HCPCS: 94010 ==

== ENCOUNTER 2024-11-24 09:29 | Emergency (ER) | payer OTHER, MEDICAID, SELFPAY ==
[2024-11-24 09:32] VITALS: BP 171/80; PULSE 64; TEMP 36.9; O2SAT 99
--- OUTSIDE RECORDS SUMMARY | 2024-11-24 09:35 | XMS_ITS | Encounter Summary ---
Author Organization [facility] Address [address] [place] [address] Care Team Providers Care Aviation Safety Technician Name Role Phone Ruth Puckett DO Primary Care Provider [phone] Encounter Details Date Type Department Care Team (Late st Contact Info) Description 05/15/1998 Outpatient Historical [facility] Family Medicine [address] 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
--- OUTSIDE RECORDS SUMMARY | 2024-11-24 09:35 | XMS_ITS | Encounter Summary ---
Author Organization [facility] Address [address] [place] [address] Care Team Providers Care Hall Director Name Role Phone Ruth Puckett DO Primary Care Provider [phone]- [phone] Encounter Details Date Type Department Care Team (Late st Contact Info) Description 04/23/1998 Outpatient Historical [facility] Family Medicine [address] 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
--- OUTSIDE RECORDS SUMMARY | 2024-11-24 09:35 | XMS_ITS | Encounter Summary ---
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
--- OUTSIDE RECORDS SUMMARY | 2024-11-24 09:35 | XMS_ITS | Encounter Summary ---
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
--- OUTSIDE RECORDS SUMMARY | 2024-11-24 09:35 | XMS_ITS | Encounter Summary ---
Author Organization [facility] Address [address] [place] [address] Care Team Providers Care Sql Report Developer Name Role Phone Ruth Puckett DO Primary Care Provider [phone] Encounter Details Date Type Department Care Team (Latest Contact Info) Description 12/14/2006 Outpatient Historical [facility] Medicine [address] [id number] Freddie Quintana, PRINTED CIRCUIT BOARD DRAFTER [address] [place], [place] [id number] Unspecified Chest Pain (Primary Dx); Allergic Rhinitis, Cause Unspecified; Acute Bronchitis Social History Tobacco Use Types Packs/Day Years Used Date Smoking Tobacco: Never Assessed Sex and Gender Information Value Date Recorded Sex Assigned at Not on file 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
--- OUTSIDE RECORDS SUMMARY | 2024-11-24 09:35 | XMS_ITS | Clinical Summary ---
Author Organization [facility] Address [address] [place] [address] Care Team Providers Care Learning And Development Coordinator Name Role Phone Ruth Puckett Primary Care Provider +1- [phone] Allergies No known active allergies Medications multivit with min-folic acid (ONE-A-DAY VITACRAVES) 200 mcg Oral ChewIndications:HT N Take by mouth. Activ e Apple Cider Vinegar 300 mg Tablet Take 1 Tablet by mouth daily . Active Garlic Capsule Take 2,400 mg by mouth daily. Active aspirin (LUISITO) 325 mg tablet Take 1 Tablet (325 mg) by mouth daily. 100 Tablet 3 02/08/20 19 Active walker with wheels and seatIndications:Sp astic diplegic cerebral palsy (CMS/HCC) Face to Face completed within 6 months: yes Length of Need: 99 months 1 Each 02/11/20 19 Active icosapent ethyL (Vascepa) 1 gram CapsuleIndications :Mixed hyperlipidemia Take 2 Capsules (2 Grams) by mouth 2 times daily with meals. 120 Capsule 01/18/20 Active Additional Information Patient taking differently:2 Gram OralDAILY, 2 capsules in AM, Reported on 07/17/2020 tamsulosin (Flomax) 0.4 mg capsuleIndications :Benign prostatic hyperplasia with urinary frequency Take 1 Capsule (0.4 mg) by mouth daily. 90 Capsule 01/18/20 20 Active metoprolol succinate (TOPROL XL) 100 mg Extended Release 24 hour tabletIndications: Essential hypertension Take 1 Tablet (100 mg) by mouth daily. 90 Tablet 01/18/20 20 Active losartan-hydroCHLO ROthiazide (HYZAAR) 100-25 mg tabletIndications: Essential hypertension Take 1 Tablet by mouth daily. 90 Tablet 01/18/20 20 Active diclofenac sodium (VOLTAREN) 1 % gelIndications:Mackenzie thomas osteoarthritis involving multiple joints Apply 4 Grams to affected area 4 times daily. 100 Gram 6 02/19/20 20 Active omeprazole (PriLOSEC) 40 mg Capsule, Delayed Release(E.C.)Indic ations:Gastroesoph ageal reflux disease without esophagitis Take 1 Capsule (40 mg) by mouth daily. 90 Capsule 4 02/19/20 20 Active ibuprofen (MOTRIN) 800 mg tabletIndications: Pain in joint involving multiple sites Take 1 Tablet (800 mg) by mouth 3 times daily as needed for Pain, Mild. 90 Tablet 07/18/19 21 Active montelukast (Singulair) 10 mg tabletIndications: History of airborne allergies Take 1 Tablet (10 mg) by mouth daily at bedtime. 30 Tablet 2 07/18/19 21 Active levocetirizine (XYZAL) 5 mg tablet Take 1 Tablet (5 mg) by mouth late in the day. 90 Tablet 4 07/19/19 21 Active fluticasone propionate (FLONASE) 50 mcg/spray [place], Suspension nasal inhalerIndications :Seasonal allergic rhinitis due to pollen Administer 2 Sprays in each nostril daily. 16 Gram 5 08/17/19 21 Active metFORMIN (GLUCOPHAGE XR) 750 mg Extended Release 24 hour tablet Take 1 Tablet (750 mg) by mouth daily with breakfast. DIABETES 90 Tablet 3 09/18/19 21 Active albuterol HFA 90 mcg inhaler Take 2 Puffs by inhalation every 6 hours as needed for Shortness of Breath. Please give him ventolin because other brands don't help him. 18 Gram 09/18/19 21 Active lactulose (ENULOSE) 10 gram/15 mL 10 gram/15 mL solution Take 15 mL by mouth 1 time daily as needed for Constipation. 300 mL 1 09/26/19 21 Active Hospital, Clinic, or Other Facility Administered Medication Ordered Dose Route Frequency Start Date End Date Status dexamethasone (DECADRON) injection 4 mgIndications:Seasonal allergic rhinitis due to pollen 4 mg IM ONE TIME ONLY 08/14/2019 Active triamcinolone acetonide (KENALOG-40) injectable suspension 40 mgIndications:Seasonal allergic rhinitis due to pollen 40 mg IM ONE TIME ONLY 08/14/2019 Active Active Problems Problem Noted Date Diagnosed Date Benign prostatic hyperplasia with urinary hesita ncy 06/23/2020 Mixed hyperlipidemia 11/25/2019 Chronic constipation 02/15/2019 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 Cholelithiasis with cholecystitis 04/23/2010 Gastroesophageal reflux disease without esophagi tis 07/05/2008 Essential hypertension 04/13/2008 Overview (04/22/2010): Updating IMO/ICD9 Code and Description Mild intermittent asthma without complication Immunizations Immunization Administration Dates Next Due (ADACEL/BOOSTRIX)(10 YR UP) TDAP VACCINE, 0.5ML, IM 11/02/2015 (SPIKEVAX) (12 YRS UP PRIMAR Y SERIES) COVID-19 VACCINE - MRNA-1273(PF) 100 MCG/0.5 ML IM SUSP 05/27/2020 INFLUENZA VACCINE QUADRIVALENT 3 YR UP PF IM INFLUENZA VACCINE QUADRIVALE NT 6 MOS UP CELL DERIVED PF IM 12/11/2019 Influenza Seasonal Unspecified Formulation IM ,01/27/2011 Family History Medical History Relation Name Comments Hypertension Father Diabetes Maternal Grandfather Cancer Other Diabetes Other Relation Name Status Comments Father Maternal Grandfather Mother Other Social History Tobacco Use Types Packs/Day Years Used Date Smoking Tobacco: Former Cigars Smokeless Tobacco: Never Tobacco Cessation:Counseling Given: Yes Comments:pack lasts him a month generally Alcohol Use Standard Drinks/Week Comments No 0 (1 standard drink = 0.6 oz pur e alcohol) Sex and Gender Information Value Date Recorded Sex Assigned at Not on file 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 Gender Identity Not on file Sexual Orientation Not on file Last Filed Vital Signs Vital Sign Reading Time Taken Comments Blood Pressure 138/80 09/17/2020 1:12 PM CDT Pulse 110 09/17/2020 1:12 PM CDT Temperature 36.9 C (98.4 F) 09/17/2020 1:12 PM CDT Respiratory Rate 18 09/17/2020 1:12 PM CDT Oxygen Saturation 97% 09/17/2020 1:12 PM CDT Inhaled Oxygen Concentration - - Weight 107 kg (236 lb) 09/17/2020 1:12 PM CDT Height 175.3 cm (5' 9 ) 09/17/2020 1:12 PM CDT Body Mass Index 34.85 09/17/2020 1:12 PM CDT Plan of Treatment Health Maintenance Due Date Last Done Comments Pre-Diabetes and Diabetes Screening 1977 FIT/ DNA Q 3 YEARS (AUTO ORDER) 1995 FIT/FOBT Q 1 YEAR (AUTO ORDER) 1995 FLEX SIG/CT COLONOGRAPHY Q 5 YEARS (AUTO ORDER) 1995 HEPATITIS B VACCINES (1 of 3 - 19+ 3-dose series) 1996 COLORECTAL CANCER SCREENING (AUTO ORDER) 2022 COLORECTAL SCREENING 2022 Colorectal Cancer Screening (AUTO ORDER) 2022 Colorectal Cancer Screening 2022 FIT-DNA Q 3 years 2022 FIT/FOBT Q 1 year 2022 Flex Sig/CT Colonography Q 5 years 2022 COVID-19 Vaccine (2 - 2023-2 5 season) 2023 05/27/2020 [place] Preventative Visit/Annual Wellness Visit 03/29/2024 09/17/2020, 02/19/2020, 11/01/2012 INFLUENZA VACCINE (#1) 2024 , 12/11/2019, 02/07/2019, Additional history exists DTAP/TDAP/TD VACCINES (3 - T d or Tdap) 07/10/2030 07/10/2020, 11/02/2015 Insurance [place] [facility] Medicare Part D RX [employer] Medicaid Care Teams Learning And Development Coordinator Relationship Specialty Start Date End Date Ruth Puckett DO [address] [place] [id number] PCP - General Family Practice 09/06/19
--- OUTSIDE RECORDS SUMMARY | 2024-11-24 09:35 | XMS_ITS | Encounter Summary ---
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
--- OUTSIDE RECORDS SUMMARY | 2024-11-24 09:35 | XMS_ITS | Encounter Summary ---
Author Organization [facility] Address [address] [place] [address] Care Team Providers Care Concrete Bucket Unloader Name Role Phone Ruth Puckett DO Primary Care Provider +1- [phone] Encounter Details Date Type Department Care Team (Latest Contact Info) Description 04/04/2006 Outpatient Historical [facility] [address] [place] [address] AMBULANCE, [facility] Injury, Other and Unspecified, Shoulder and Upper Arm (Primary Dx) Social History Tobacco Use Types Packs/Day Years Used Date Smoking Tobacco: Never Assessed Sex and Gender Information Value Date Recorded Sex Assigned at Not on file 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
--- OUTSIDE RECORDS SUMMARY | 2024-11-24 09:35 | XMS_ITS | Encounter Summary ---
Author Organization [facility] Address [address] [place] [address] Care Team Providers Care Cylinder Machine Operator Pulp Drier Name Role Phone Ruth Puckett DO Primary Care Provider +1- [phone] Encounter Details Date Type Department Care Team (Latest Contact Info) Description 04/21/2006 Outpatient Historical [facility] Medicine [place] [address] [phone] Freddie Quintana, FLUORESCENT LAMP REPLACER [address] [place], [place] [id number] Pain in Joint, Shoulder Region (Primary Dx) Social History Tobacco Use Types Packs/Day Years Used Date Smoking Tobacco: Never Assessed Sex and Gender Information Value Date Recorded Sex Assigned at Not on file 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
--- OUTSIDE RECORDS SUMMARY | 2024-11-24 09:35 | XMS_ITS | Encounter Summary ---
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
--- OUTSIDE RECORDS SUMMARY | 2024-11-24 09:35 | XMS_ITS | Encounter Summary ---
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
--- OUTSIDE RECORDS SUMMARY | 2024-11-24 09:35 | XMS_ITS | Encounter Summary ---
Author Organization [facility] Address [address] [place] [address] Care Team Providers Care Forestry Tree Pruner Name Role Phone Ruth Puckett DO Primary Care Provider +1- [phone] Encounter Details Date Type Department Care Team (Latest Contact Info) Description 02/23/2004 Outpatient Historical [facility] [address] 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
--- OUTSIDE RECORDS SUMMARY | 2024-11-24 09:35 | XMS_ITS | Encounter Summary ---
Author Organization [facility] Address [address] [place] [address] Care Team Providers Care Grit Blaster Name Role Phone Ruth Puckett DO Primary Care Provider +1 [phone] Encounter Details Date Type Department Care Team (Late st Contact Info) Description 08/03/2012 Ancillary Orders [facility] [place] [facility] [address] [facility] [address] [place] [address] Juancho Caruso MD [address] [place] [address] Unspecified anomaly of tooth position (Primary Dx) Social History Tobacco Use Types Packs/Day Years Used Date Smoking Tobacco: Some Days Cigars Smokeless Tobacco: Never Comments:pack lasts him a mo nth generally Alcohol Use Standard Drinks/Week Comments No 0 (1 standard drink = 0.6 oz pur e alcohol) Sex and Gender Information Value Date Recorded Sex Assigned at Not on file 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 Edentulous maxillary except for retained root #15. Mesial angle #32. Horizontal impacted #17 adjacent to PEPE canal. Normal TMJ contour Normal maxillary sinuses Procedure Note Juancho Caruso MD - 08/03/2012 Panorex: Permanent dentition. Edentulous maxillary except for retainedroot #15. Mesial angle #32. Horizontal impacted #17 adjacent to PEPE canal.Normal TMJ contour Normal maxillary sinuses us Juancho Caruso MD DIAGNOSTIC IMAGING ORD ERABLES Final Result documented in this encounter Visit Diagnoses Diagnosis Unspecified anomaly of tooth position- Primary documented in this encounter Care Teams Grit Blaster Relationship Specialty Start Date End Date Ruth Puckett DO [address] [place] [address] PCP - General Family Practice 09/06/19 documented as of this encounter
--- OUTSIDE RECORDS SUMMARY | 2024-11-24 09:35 | XMS_ITS | Encounter Summary ---
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
--- OUTSIDE RECORDS SUMMARY | 2024-11-24 09:35 | XMS_ITS | Encounter Summary ---
Author Organization [facility] Address [address] [place] [address] Care Team Providers Care It Quality Analyst Name Role Phone Ruth Puckett DO Primary Care Provider +1- [phone] Encounter Details Date Type Department Care Team (Late st Contact Info) Description 05/06/[address] 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
--- OUTSIDE RECORDS SUMMARY | 2024-11-24 09:35 | XMS_ITS | Encounter Summary ---
Author Organization [facility] Address [address] [place] [address] Care Team Providers Care Dynamiter Name Role Phone Ruth Puckett DO Primary Care Provider +1- [phone] Encounter Details Date Type Department Care Team (Late st Contact Info) Description 02/23/2004 Emergency [facility] Emergency Department [address] [place] [address] [place] [id number] [place] [address] TRACHEA/BRONCHUS DIS NEC (Primary Dx) Social History Tobacco Use Types Packs/Day Years Used Date Smoking Tobacco: Never Assessed Sex and Gender Information Value Date Recorded Sex Assigned at Not on file 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
--- OUTSIDE RECORDS SUMMARY | 2024-11-24 09:35 | XMS_ITS | Clinical Summary ---
Author Organization [facility] [facility] Address [address] [place] [address] Care Team Providers Care Instructor Hairspring Name Role Phone Luis Johnston MD Primary Care Provider [phone] [phone] Allergies Active Allergy Reactions Criticality Noted Date Comments Topiramate Confusion Low 08/22/2024 Medications Apple Cider Vinegar 300 mg Tablet Take 1 Tablet by mouth daily. Active multivit with min-folic acid (One-A-Day VitaCraves) 200 mcg Tablet, Chewable Take by mouth. Activ e garlic 1,000 mg Capsule Take 2,400 mg by mouth daily. Active psyllium (METAMUCIL) Packet Take 1 Packet by mouth daily. Active OTHER Tumeric 450 mg once daily Active ascorbic acid, vitamin C, (VITAMIN C) 1,000 mg Tablet Take 1,000 mg by mouth daily. Active Nikolski-3 Fatty Acids-Vitamin E 2,000-650-12 mg/2.5 gram Emulsion in Packet Take by mouth. Active CYANOCOBALAMIN, VITAMIN B-12, ORAL Take by mouth. Active aspirin (LUISITO) 325 mg tablet Take 1 Tablet (325 mg) by mouth daily. 100 Tablet 3 02/27/20 22 Active walker with wheels Face to Face completed within 6 months: yes Length of Need: 99 months 1 Each 12/26/19 23 Active C/sourcherry/celer y/grape seed (TART CHENG ORAL) Take by mouth. Ac tive albuterol sulfate HFA 90 mcg/actuation aerosol inhalerIndications :Mild intermittent asthma without complication Take 2 Puffs by inhalation every 4 hours as needed for Shortness of Breath or Wheezing. 25.5 Gram 08/11/19 24 Active fluticasone-umecli dinium-vilanterol (Trelegy Ellipta) 100-62.5-25 mcg Disk with DeviceIndications: Mild intermittent asthma without complication INHALE 1 PUFF EVERY DAY 180 Each 3 10/12/19 24 Active tamsulosin (FLOMAX) 0.4 mg capsuleIndications :Benign prostatic hyperplasia with urinary frequency Take 1 Capsule (0.4 mg) by mouth daily. 100 Capsule 3 01/05/20 24 Active potassium chloride (KLOR-CON) 10 mEq Extended Release tabletIndications: Bilateral edema of lower extremity Take 1 Tablet (10 mEq) by mouth daily with breakfast. 100 Tablet 3 01/05/20 24 Active metoprolol succinate (TOPROL XL) 100 mg Extended Release 24 hour tabletIndications: Essential hypertension Take 1 Tablet (100 mg) by mouth daily. 100 Tablet 2 01/05/20 24 Active losartan-hydroCHLO ROthiazide (HYZAAR) 100-25 mg tabletIndications: Essential hypertension Take 1 tablet by mouth once daily 100 Tablet 3 01/05/20 24 Active furosemide (LASIX) 20 mg tabletIndications: Bilateral edema of lower extremity Take 1 Tablet (20 mg) by mouth daily. 100 Tablet 3 01/05/20 24 Active atorvastatin (LIPITOR) 20 mg tabletIndications: Mixed hyperlipidemia Take 1 Tablet (20 mg) by mouth daily. 90 Tablet 4 01/05/20 24 Active allopurinoL (ZYLOPRIM) 300 mg tablet Take 1 Tablet (300 mg) by mouth 2 times daily. 180 Tablet 3 01/05/20 24 Active Additional Information Patient taking differently:300 mg OralDAILY, Reported on 11/15/2024 fluticasone propionate (FLONASE) 50 mcg/spray Jermyn, Suspension nasal inhalerIndications :Seasonal allergic rhinitis due to pollen Administer 2 Sprays in each nostril daily. 48 Gram 3 04/19/19 25 Active promethazine-dextr omethorphan (PHENERGAN-DM) 6.25-15 mg/5 mL syrupIndications:M ild intermittent asthma without complication Take 5 mL by mouth every 4 hours as needed for Cough. 240 mL 3 08/16/19 25 Active omeprazole (PriLOSEC) 20 mg Capsule, Delayed Release(E.C.) Take 20 mg by mouth daily. Active omega-3 acid ethyl esters (LOVAZA) 1 gram Capsule Take 2 Capsules by mouth daily. 10/24/19 25 Active albuterol (ACCUNEB) 1.25 mg/3 mL Solution for Nebulization USE 1 VIAL IN NEBULIZER EVERY 4 HOURS NEEDED FOR SHORTNESS OF BREATH 09/02/19 25 Active ibuprofen (MOTRIN) 800 mg tablet Take 1 Tablet (800 mg) by mouth every 8 hours as needed for Pain. 90 Tablet 2 11/16/19 25 Active diclofenac sodium (VOLTAREN) 1 % gel Apply 4 Grams to affected area 4 times daily. 100 Gram 2 11/16/19 25 Active diclofenac sodium (VOLTAREN) 1 % gel Apply 4 Grams to affected area 4 times daily. 100 Gram 04/19/19 25 025 Discontin ued(Reord er) ibuprofen (MOTRIN) 800 mg tablet Take 800 mg by mouth every 8 hours as needed for Pain. 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 Cholelithiasis with cholecystitis 04/23/2010 Gastroesophageal reflux disease without esophagi tis 07/05/2008 Essential hypertension 04/13/2008 Overview (07/25/2020): Updating IMO/ICD9 Code and Description Mild intermittent asthma without complication Encounters Date Type Department Care Team Description 11/22/[address] [address] Tg Maier FNP 11/15/2024 10:20 AM CDT Office Visit [address] [place] [address] Tg Maier, DIPESH Spastic diplegic cerebral palsy (Primary Dx); Essential hypertension; Mixed hyperlipidemia; Benign prostatic hyperplasia with urinary hesitancy; Obesity (BMI 30.0-34.9); Prediabetes 11/15/[address] [facility] [address] [phone] Luis Johntson MD Patient Communication 11/14/2024 External Device Data STL ABSTRACTION Provider, Abstract 11/01/2024 External Device Data STL ABSTRACTION Provider, Abstract 10/11/2024 External Device Data STL ABSTRACTION Provider, Abstract 10/11/2024 External Device Data STL ABSTRACTION Provider, Abstract 09/26/2024 External Device Data STL ABSTRACTION Provider, Abstract 08/29/2024 External Device Data STL ABSTRACTION Provider, Abstract 08/24/2024 Orders Only [address] [phone] Provider, Abstract from Last 3 Months Immunizations Immunization Administration Dates Next Due (ADACEL/BOOSTRIX)(10 YR UP) TDAP VACCINE, 0.5ML, IM 11/02/2015 (Moderna Bivalent)(6 Mos Up) COVID-19 Vaccine - Emergency Use Authorization, MRNA(Pf) 50 Mcg/0.5 Ml Im Susp 12/04/2021 (PNEUMOVAX 23)(50 YRS UP) PN EUMOCOCCAL POLYSACCHARIDE (PPV23) 0.5 ML, IM 01/13/2021 (SPIKEVAX) (12 YRS UP PRIMAR Y SERIES) COVID-19 VACCINE - MRNA-1273(PF) 100 MCG/0.5 ML IM SUSP 12/21/2022,12/04/2021,05/11/2021,11/12,05/27/2020 (SPIKEVAX)(12 YRS AND UP)COV ID-19 VACCINE, MRNA, LNP-S(PF) 50 MCG/0.5 ML IM SUSPENCY USE AUTHORIZATION, RECOMBINANT-ADJ(PF) 5 MCG/0.5 ML IM SUSP 12/15/2022 Adacel Vaccine > 7 Yo IM 07/10/2020,11/02/2015,1 04/05/2008 INFLUENZA VACCINE HIGH DOSE QUADRIVALENT 65 YR UP PF IM 12/02/2016 INFLUENZA VACCINE QUADRIVALE NT 3 YR UP PF IM 11/14/2018 INFLUENZA VACCINE QUADRIVALE NT 6 MOS UP CELL DERIVED PF IM 12/11/2019 INFLUENZA VACCINE QUADRIVALE NT 6 MOS UP PF IM 12/21/2022 Influenza Seasonal Unspecifi ed Formulation IM 11/19/2023,12/15/2022,12/04/2021,12/06,12/12/2019,11/14/2018,12/06/2017 ,12/02/2016,11/09/2015,12/06/2014,11/27,01/27/2011 Influenza Vaccine Quad Split (18-64) Pf Id 12/06/2020 Influenza vaccine quadrivale nt 6-35 mos IM 12/02/2021 Family History Medical History Relation Name Comments Hypertension Father Diabetes Maternal Grandfather Cancer Other Diabetes Other Relation Name Status Comments Father Maternal Grandfather Mother Other Social History Tobacco Use Types Packs/Day Years Used Date Smoking Tobacco: Former Passive Smoke Exposure: Past Smokeless Tobacco: Never Tobacco Cessation:Counseling Given: No Comments:Quit smoking: pack lasts him a month generally Alcohol Use Standard Drinks/Week Comments No 0 (1 standard drink = 0.6 oz pur e alcohol) Financial Resource Strain Answer Date R ecorded How hard is it for you to pa y for the very basics like food, housing, medical care, and heating? Patient declined 08/03/2022 Food Insecurity Answer Date Recorded In the past 12 months, have you worried that your food would run out before you had money to buy more? Patient declined 2022 In the past 12 months, did y ou run out of food and didn't have money to buy more? Patient declined 08/03/2022 Transportation Needs Answer Date Record ed In the past 12 months, has l ack of transportation kept you from medical appointments or from getting medications? No 08/03/2022 Lack of Transportation (Non-Medical) Not on file 08/03/2022 Feeling Safe Answer Date Recorded Are you in a relationship wi th someone who hurts you emotionally and/or physically? 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 Gender Identity Not on file Sexual Orientation Not on file Last Filed Vital Signs Vital Sign Reading Time Taken Comments Blood Pressure 130/82 11/15/2024 10:21 AM CDT Pulse 65 11/15/2024 10:21 AM CDT Temperature 35.8 C (96.5 F) 11/15/2024 10:21 AM CDT Respiratory Rate 16 11/15/2024 10:21 AM CDT Oxygen Saturation 99% 11/15/2024 10:21 AM CDT Inhaled Oxygen Concentration - - Weight 107.5 kg (237 lb) 11/15/2024 10:21 AM CDT Height 175.3 cm (5' 9 ) 11/15/2024 10:21 AM CDT Body Mass Index 35 11/15/2024 10:21 AM CDT Plan of Treatment Upcoming Encounters Date Type Department Care Team (Late st Contact Info) Description 02/20/2025 2:00 PM CONSULTING SYSTEMS ENGINEER Office Visit [address] [phone] Luis Johnston MD [address] [address] Health Maintenance Due Date Last Done Comments FIT/ DNA Q 3 YEARS (AUTO ORDER) 1995 FIT/FOBT Q 1 YEAR (AUTO ORDER) 1995 FLEX SIG/CT COLONOGRAPHY Q 5 YEARS (AUTO ORDER) 1995 HEPATITIS B VACCINES (1 of 3 - 19+ 3-dose series) 1996 FIT-DNA Q 3 years 2022 FIT/FOBT Q 1 year 2022 Flex Sig/CT Colonography Q 5 years 2022 [place] Preventative Visit/Annual Wellness Visit 03/29/2024 09/06/2023, 08/03/2022, 04/15/2021, Additional history exists INFLUENZA VACCINE (#1) 2024 , 11/19/2023, 12/21/2022, Additional history exists Pre-Diabetes and Diabetes Screening 01/04/2027 01/05/2024, 12/30/2020 DTAP/TDAP/TD VACCINES (5 - T d or Tdap) 07/10/2030 07/10/2020, 11/02/2015, 11/02/2015, Additional history exists COLORECTAL CANCER SCREENING (AUTO ORDER) 06/18/2032 06/18/2022 COLORECTAL SCREENING 06/18/2032 06/18/2022 Colorectal Cancer Screening (AUTO ORDER) 06/18/2032 Colorectal Cancer Screening 06/18/2032 COVID-19 Vaccine Completed 12/18/2023, , 12/15/2022, Additional history exists Medical Devices Implanted Type Area Wedding Planner Device Identifier Shelf Expiration Date Model / Serial / Lot Plate Plate Left: Arm Procedures Procedure Name Priority Date/Time Associated Diagnosis Comments HEMOGLOBIN A1C Routine 01/05/2024 11:15 AM CDT Essential hypertension Screening for diabetes mellitus from Last 3 Months or Most Recently Relevant to Health Maintenance Results * (ABNORMAL) HEMOGLOBIN A1C (01/05/2024 11:15 AM CDT) HEMOGLOBIN A1C 5.9(H) <5.7 % of total Hgb [facility] Comment: For someone without known diabetes, a hemoglobin A1c value between 5.7% and 6.4% is consistent with prediabetes and should be confirmed with a follow-up test. For someone with known diabetes, a value <7% indicates that their diabetes is well controlled. A1c targets should be individualized based on duration of diabetes, age, comorbid conditions, and other considerations. This assay result is consistent with an increased risk of diabetes. Currently, no consensus exists regarding use of hemoglobin A1c for diagnosis of diabetes for children. ESTIMATED AVERAGE GLUCOSE (MG/DL) 123 mg/dL [facility] ESTIMATED AVERAGE GLUCOSE (MMOL/L) 6.8 mmol/L [facility] Comment: FASTING:NO FASTING: NO Test Performed at: [facility] [id number] [id number] Caryl Torrez MD Blood 01/05/2024 11:1 5 AM CDT 01/05/2024 11:16 AM CDT Ruth Puckett DO CHEMISTRY ORDERABLES Final Result [facility] [phone] [facility] [id number] [id number] from Last 3 Months or Most Recently Relevant to Health Maintenance Insurance MEDICAID [place] DUAL COMPLETE HMO [facility] [id number] RX [employer]OSSING Medicaid RX [facility] Medicare Part D Care Teams Instructor Hairspring Relationship Specialty Start Date End Date Luis Johnston MD [address] [phone] PCP - General Family Practice 11/15/24
--- OUTSIDE RECORDS SUMMARY | 2024-11-24 09:35 | XMS_ITS | Encounter Summary ---
Author Organization [facility] Address [address] [place] [address] Care Team Providers Care Care Technician Name Role Phone Ruth Puckett DO Primary Care Provider [phone] Encounter Details Date Type Department Care Team (Late st Contact Info) Description 01/15/[address] 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
--- OUTSIDE RECORDS SUMMARY | 2024-11-24 09:35 | XMS_ITS | Patient Health Record ---
Author Organization [facility] Address [address] [place], [place] [id number] Care Team Providers Care Oil Field Roustabout Name Role Phone Jah ISAACS, Javier Primary Care Provider Jessica Mckeon MD, Avery Unavailable [phone] Reason For Referral No Information Medications Medication SIG (Take, Route, Frequency, Duration) Notes Start Date End Date Status Theragran-M Therapeutic Multiple Vitamins with Minerals 1 tab(s) orally once a day; Duration: 30 day(s) Active loratadine 10 mg 1 tab(s) orally once a day; Duration: 30 day(s) Active Benicar 40 mg 1 tab(s) orally once a day; Duration: 30 day(s) Active raNITIdine 150 mg 1 tab(s) orally 2 ti mes a day; Duration: 30 day(s) Active Plan Of Treatment No Information Insurance Providers Payer Name Payer Address Payer Phone Subscriber Number Group Number Insured Name Patient Relationship to Insured Coverage Start Date Coverage End Date [employer] Medicare Part B Claims Department [address] [address] [place] [address] [id number] Billy Eubanks Self - patient is the insured [place] MED[place] [address] [place] [address] [id number] Billy Eubanks Self - patient is the insured Medical (General) History Medical History History ICD Code Chronic pain syndrome Back pain Hypertension Asthma Cerebral palsy Surgical History Surgery Date(Month/Year) Correction of feet (as a child) Left forearm Hospitalization History Reason Date(Month/Year)
--- OUTSIDE RECORDS SUMMARY | 2024-11-24 09:35 | XMS_ITS | Encounter Summary ---
Author Organization 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
--- OUTSIDE RECORDS SUMMARY | 2024-11-24 09:35 | XMS_ITS | Encounter Summary ---
Author Organization [facility] Address [address] [place] [address] Care Team Providers Care Svp Of Digital Name Role Phone Luis Johnston MD Primary Care Provider [phone] [phone] Reason for Visit * Reason Comments Med Refill Encounter Details Date Type Department Care Team (Late st Contact Info) Description 11/22/2024 Refill [facility] Family Medicine [place] [address] [address] Tg Maier, [facility] [address] [address] Social History Tobacco Use Types Packs/Day Years Used Date Smoking Tobacco: Former Passive Smoke Exposure: Past Smokeless Tobacco: Never Comments:Quit smoking: pack lasts him a month [...] on file Legal Sex Male 2:35 AM PATIENT RELATIONS REPRESENTATIVE Gender Identity Not on file Sexual Orientation Not on file documented as of this encounter Plan of Treatment Upcoming Encounters Date Type Department Care Team (Late st Contact Info) Description 02/20/2025 2:00 PM PATIENT RELATIONS REPRESENTATIVE Office Visit [facility] Medicine [place] [address] [phone] Luis Johnston MD [address] [address] documented as of this encounter Visit Diagnoses Not on filedocumented in this encounter Care Teams Svp Of Digital Relationship Specialty Start Date End Date Luis Johnston MD [address] [address] PCP - General Family Practice 11/15/24 documented as of this encounter
--- NOTE | 2024-11-24 09:42 | XR_ITS ---
WS: [id number] Exam: XR foot RT min 3V* [id number] Date/Time of Exam: 11/24/2024 9:54 AM Reason For Exam: trauma No acute fracture. The joints are preserved. No soft tissue foreign bodies. XR/XR foot RT min 3V* [id number] IMPRESSION: 1. No acute fracture.
--- NOTE | 2024-11-24 09:42 | XR_ITS ---
WS: [id number] Exam: XR ankle RT min 3V* [id number] Date/Time of Exam: 11/24/2024 9:54 AM Reason For Exam: injury Questionable tiny nondisplaced cortical fracture along the posterior tibial shelf. No other fractures. Lateral soft tissue swelling. The ankle mortise is equidistant. Calcification and thickening of the Achilles tendon. XR/XR ankle RT min 3V* [id number] IMPRESSION: 1. Questionable tiny nondisplaced cortical fracture along the posterior tibial shelf. No other fractures. Lateral soft tissue swelling.
--- NOTE | 2024-11-24 09:58 | W.ED.LOWEXIN ---
HPI - Extremity Injury (Lower) General: Chief Complaint: Extremity Injury, Lower Stated Complaint: rt foot inj Time Seen by Provider: 11/24/24 09:42 Source: patient Mode of arrival: ambulatory Limitations: no limitations History of Present Illness: Patient is a nice 49-year-old male who presents to ED today with a complaint of of right ankle pain after he accidentally tripped on a rug yesterday. He states he has continued to be ambulatory on the ankle. He does use a walker. He has no other injuries or complaints at this time. MD complaint: ankle injury Onset (ago): day(s) (yesterday) Injury: Right: ankle and foot Place: home Severity: mild Relieving factors: immobilization Exacerbating factors: weight bearing Associated symptoms: Reports no associated symptoms Other symptoms: none Related Data Home Medications ?Medication ?Instructions ?Recorded ?Confirmed albuterol sulfate 90 mcg/actuation 2 inh inhalation Q4H PRN Shortness 12/29/22 08/16/24 aerosol inhaler Of Breath Or Wheezing allopurinol 300 mg tablet 300 mg PO BID 12/29/22 08/16/24 atorvastatin 20 mg tablet 20 mg PO QAM 12/29/22 08/16/24 fluticasone propionate 50 2 spray intranasal QAM 12/29/22 08/16/24 mcg/actuation nasal spray,suspension garlic 1,000 mg capsule 1,000 mg PO BID 12/29/22 08/16/24 ibuprofen 800 mg tablet 800 mg PO TID PRN Pain 12/29/22 08/16/24 losartan 100 1 tab PO QAM 12/29/22 08/16/24 mg-hydrochlorothiazide 25 mg tablet metformin 750 mg tablet,extended 750 mg PO QAM 12/29/22 08/16/24 release 24 hr metoprolol succinate 100 mg 100 mg PO QAM 12/29/22 08/16/24 tablet,extended release 24 hr multivitamin 1 tab PO QAM 12/29/22 08/16/24 omega 3-nwv-jwg-fish oil 60 mg-90 1 cap PO DAILY 12/29/22 08/16/24 mg-500 mg capsule (Fish Oil) pantoprazole 40 mg tablet,delayed 40 mg PO QAM 12/29/22 08/16/24 release psyllium husk 3.4 gram/5.4 gram 1 tbsp PO DAILY 12/29/22 08/16/24 oral powder (Metamucil) tamsulosin 0.4 mg capsule 4 mg PO QAM 12/29/22 08/16/24 vitamin B complex 1 tab PO DAILY 12/29/22 08/16/24 aspirin 325 mg tablet 325 mg PO DAILY 07/03/23 08/16/24 fluticasone fur. 100 mcg-umeclid 1 inh inhalation DAILY 08/16/24 08/16/24 62.5 mcg-vilant 25 mcg inhalat.powder (Trelegy Ellipta) furosemide 20 mg tablet 20 mg PO DAILY 08/16/24 08/16/24 potassium chloride 10 mEq 10 meq PO QAM 08/16/24 08/16/24 tablet,extended release topiramate 100 mg tablet 100 mg PO BID 08/16/24 08/16/24 valacyclovir 1 gram tablet 1,000 mg PO BID PRN Cold Sores 08/16/24 08/16/24 Previous Rx's ?Medication ?Instructions ?Recorded articulating AFO #1 ea 11/18/22 articulating AFO #1 ea 01/26/23 Allergies Allergy/AdvReac Type Severity Reaction Status Date / Time No Known Allergies Allergy Verified 11/24/24 09:38 Review of Systems Musc: Reports: joint pain (R ankle) and joint swelling (R ankle) Neuro: Denies: numbness in extremities, weakness in extremities, sensory changes or difficulty walking [facility] ED PFSH: Medical History Neuropathy Surgical History H/O foot surgery Physical Exam Const: COMMON NORMALS: no acute distress, average body habitus, no limitations, healthy appearing, alert and well nourished Extremity: COMMON NORMALS: full ROM and capillary refill normal GENERAL: Yes normal exam except as noted RIGHT LOWER EXTREMITY: Yes foot & digits (ecchymosis lateral ankle; mild edema) Right ankle: Yes neurovascular exam (normal) Neuro: COMMON NORMALS: moves all extremities, no focal motor deficits, no sensory deficits noted and gait normal SENSORIUM/ORIENTATION: Yes alert Course Vital Signs: Vital signs: Vital Signs Temperature 98.4 F 11/24/24 09:32 Pulse Rate 64 11/24/24 09:32 Blood Pressure 171/80 11/24/24 09:32 Pulse Oximetry 99 11/24/24 09:32 Oxygen Delivery Me thod Room Air 11/24/24 09:32 MDM - Extremity Injury (Lower) Medical Decision Making XR showing questionable nondisplaced cortical fracture along the posterior tibial shelf. Will splint and have him follow-up with orthopedics. He does not want a splint and is requesting a CAM boot instead so he can take it off when he showers. States he does not want crutches. Lab Data Radiology Impressions Ankle X-Ray 11/24/24 09:42 IMPRESSION: 1. Questionable tiny nondisplaced cortical fracture along the posterior tibial shelf. No other fractures. Lateral soft tissue swelling. Foot X-Ray 11/24/24 09:42 IMPRESSION: 1. No acute fracture. All radiology interpretation(s) finalized by discharge Discharge Plan Discharge Patient Disposition: Home Clinical Impression: Closed fracture of distal end of right tibia Qualifiers: Encounter type: initial encounter Fracture morphology: unspecified fracture morphology Qualified Code(s): S82.301A - Unspecified fracture of lower end of right tibia, initial encounter for closed fracture Condition: Stable Prescriptions: No Action (DME) articulating AFO See Rx Instructions .Route .MEDSUPPLY Qty: 1 0RF Rx Instructions: As directed to [facility] (DME) articulating AFO See Rx Instructions .Route .MEDSUPPLY Qty: 1 0RF Rx Instructions: As directed to [facility] atorvastatin 20 mg tablet 20 mg PO QAM ibuprofen 800 mg tablet 800 mg PO TID PRN (Reason: Pain) metoprolol succinate 100 mg tablet extended release 24 hr 100 mg PO QAM losartan-hydrochlorothiazide 100-25 mg tablet 1 tab PO QAM tamsulosin 0.4 mg capsule 4 mg PO QAM pantoprazole 40 mg tablet,delayed release (DR/EC) 40 mg PO QAM allopurinol 300 mg tablet 300 mg PO BID albuterol sulfate 90 mcg/actuation HFA aerosol inhaler 2 inh INHALATION Q4H PRN (Reason: Shortness Of Breath Or Wheezing) fluticasone propionate 50 mcg/actuation spray,suspension 2 spray INTRANASAL QAM metformin 750 mg tablet extended release 24 hr 750 mg PO QAM multivitamin [Multi-Vitamins] Tablet 1 tab PO QAM garlic 1,000 mg Capsule 1,000 mg PO BID vitamin B complex [Super B Complex] Tablet 1 tab PO DAILY omega 4-yww-uyb-fish oil [Fish Oil] 60-90-500 mg Capsule 1 cap PO DAILY Metamucil 3.4 gram/5.4 gram Powder 1 tbsp PO DAILY Rx Instructions: mix into at least 8 oz of water or juice before administering aspirin 325 mg Tablet 325 mg PO DAILY valacyclovir 1 gram tablet 1,000 mg PO BID PRN (Reason: Cold Sores) potassium chloride 10 mEq tablet extended release 10 meq PO QAM furosemide 20 mg tablet 20 mg PO DAILY topiramate 100 mg tablet 100 mg PO BID Trelegy Ellipta 100-62.5-25 mcg blister with device 1 inh INHALATION DAILY Discharge Orders: Discharge ED (Routine); Ordered 11/24/24 Ordered By: Indira Chatterjee Referrals: Praveen Tyson [Primary Care Provider, Family Practice] Patient Instructions: Patient Portal & Roland Instructions Activity Restrictions/Additional Instructions: As we discussed, orthopedics should contact you today or next week to help set you up with your follow-up orthopedic appointment. As we discussed radiology questioned the presence of a small fracture involving your right ankle. Print Language: Dutch Coding Level of Care Code ED Contract Lead for Guilherme Barnes
--- NOTE | 2024-11-24 10:40 | PC.NURSE ---
PT REFUSED SPLINT
[2024-11-24 11:03] VITALS: BP 127/81; PULSE 75; O2SAT 98
--- NOTE | 2024-11-24 11:41 | PC.NURSE ---
[facility] ME came and placed PT in cam boot. PT was instructed to follow up with ortho
== END 2024-11-24 11:42 | disposition home or self-care (01) ==
PROVIDERS: Emergency Provider Physician Assistant; PCP Family Medicine
DX: S82.301A Unspecified fracture of lower end of right tibia, initial encounter for closed fracture (principal); Z79.84 Long term (current) use of oral hypoglycemic drugs; Z79.82 Long term (current) use of aspirin; W22.8XXA Striking against or struck by other objects, initial encounter
CPT/HCPCS: 73610; 73630; 99283

== ENCOUNTER → 2024-11-30 10:03 | Outpatient (BNVA) | payer BC, MEDICARE, MEDICAID, SELFPAY | PROVIDERS: PCP Family Medicine; Visit Provider Podiatrist Foot & Ankle Surgery | DX: S82.301A Unspecified fracture of lower end of right tibia, initial encounter for closed fracture (principal); W19.XXXA Unspecified fall, initial encounter | CPT/HCPCS: 73610 ==

== ENCOUNTER → 2024-12-27 11:19 | Outpatient (BNVA) | payer BC, MEDICARE, MEDICAID, SELFPAY | PROVIDERS: PCP Family Medicine; Visit Provider Podiatrist Foot & Ankle Surgery | DX: S82.301A Unspecified fracture of lower end of right tibia, initial encounter for closed fracture (principal); W18.39XA Other fall on same level, initial encounter | CPT/HCPCS: 73610 ==